=== PATIENT | female | born 1965 | race Caucasian/White ===

== ENCOUNTER → 2019-12-10 13:15 | Outpatient (BNVA) | payer MEDICARE, SELFPAY | PROVIDERS: Family Provider Internal Medicine; PCP Internal Medicine; Visit Provider Nurse Practitioner | DX: F70 Mild intellectual disabilities (principal); F25.1 Schizoaffective disorder, depressive type | CPT/HCPCS: 99213 ==

== ENCOUNTER → 2019-12-25 10:26 | Outpatient (BNVA) | payer MEDICARE, SELFPAY | PROVIDERS: Family Provider Internal Medicine; PCP Internal Medicine; Visit Provider Social Worker | DX: F70 Mild intellectual disabilities (principal); F25.1 Schizoaffective disorder, depressive type | CPT/HCPCS: 90834 ==

== ENCOUNTER → 2020-01-14 09:43 | Outpatient (BNVA) | payer MEDICARE, SELFPAY | PROVIDERS: Family Provider Internal Medicine; PCP Internal Medicine; Visit Provider Social Worker | DX: F70 Mild intellectual disabilities (principal); F25.1 Schizoaffective disorder, depressive type | CPT/HCPCS: 90834 ==

== ENCOUNTER → 2020-03-10 15:59 | Outpatient (BNVA) | payer MEDICARE, SELFPAY | PROVIDERS: Family Provider Internal Medicine; PCP Internal Medicine; Visit Provider Social Worker | DX: F25.1 Schizoaffective disorder, depressive type (principal); F70 Mild intellectual disabilities | CPT/HCPCS: 90832 ==

== ENCOUNTER → 2020-03-17 08:37 | Outpatient (BNVA) | payer MEDICARE, SELFPAY | PROVIDERS: Family Provider Internal Medicine; PCP Internal Medicine; Visit Provider Nurse Practitioner | DX: F70 Mild intellectual disabilities (principal); F25.1 Schizoaffective disorder, depressive type | CPT/HCPCS: 99213 ==

== ENCOUNTER → 2020-04-28 08:28 | Outpatient (BNVA) | payer MEDICARE, SELFPAY | PROVIDERS: Family Provider Internal Medicine; PCP Internal Medicine; Visit Provider Social Worker | DX: F70 Mild intellectual disabilities (principal); F25.1 Schizoaffective disorder, depressive type | CPT/HCPCS: 90834 ==

== ENCOUNTER → 2020-06-11 07:52 | Outpatient (BNVA) | payer MEDICARE, SELFPAY | PROVIDERS: Family Provider Internal Medicine; PCP Internal Medicine; Visit Provider Nurse Practitioner | DX: F70 Mild intellectual disabilities (principal); F25.1 Schizoaffective disorder, depressive type | CPT/HCPCS: 99213 ==

== ENCOUNTER → 2020-06-18 11:10 | Outpatient (BNVA) | payer MEDICARE, MEDICAID, SELFPAY | PROVIDERS: Family Provider Internal Medicine; PCP Internal Medicine; Visit Provider Internal Medicine | DX: E11.9 Type 2 diabetes mellitus without complications (principal); K75.81 Nonalcoholic steatohepatitis (NASH) | CPT/HCPCS: 80053; 80061; 83036; 85025 ==

== ENCOUNTER → 2020-09-08 08:04 | Outpatient (BNVA) | payer MEDICARE, SELFPAY | PROVIDERS: Family Provider Internal Medicine; PCP Internal Medicine; Visit Provider Nurse Practitioner | DX: F25.1 Schizoaffective disorder, depressive type (principal); F70 Mild intellectual disabilities | CPT/HCPCS: 99213 ==

== ENCOUNTER → 2021-05-04 13:05 | Outpatient (BNVA) | payer MEDICARE, MEDICAID, SELFPAY | PROVIDERS: Family Provider Internal Medicine; PCP Internal Medicine; Visit Provider Nurse Practitioner | DX: F25.1 Schizoaffective disorder, depressive type (principal); F70 Mild intellectual disabilities | CPT/HCPCS: 99214 ==

== ENCOUNTER → 2021-08-03 13:07 | Outpatient (BNVA) | payer MEDICARE, MEDICAID, SELFPAY | PROVIDERS: Family Provider Internal Medicine; PCP Internal Medicine; Visit Provider Nurse Practitioner | DX: F25.1 Schizoaffective disorder, depressive type (principal); F70 Mild intellectual disabilities | CPT/HCPCS: 99214 ==

== ENCOUNTER → 2021-08-25 14:56 | Outpatient (BNVA) | payer MEDICARE, MEDICAID, SELFPAY | PROVIDERS: Family Provider Internal Medicine; PCP Internal Medicine; Visit Provider Podiatrist Foot & Ankle Surgery | DX: M79.671 Pain in right foot (principal); R22.41 Localized swelling, mass and lump, right lower limb | CPT/HCPCS: 73630 ==

== ENCOUNTER 2021-08-25 16:04 | Outpatient (CLI) | payer MEDICARE, MEDICAID, SELFPAY | END 2021-08-25 16:05 | disposition home or self-care (01) | LOC: SPT 16:05 | PROVIDERS: Family Provider Internal Medicine; PCP Internal Medicine; Visit Provider Podiatrist Foot & Ankle Surgery | DX: Z46.89 Encounter for fitting and adjustment of other specified devices (principal); M72.2 Plantar fascial fibromatosis | CPT/HCPCS: 97760; L4397 ==

== ENCOUNTER 2021-10-01 16:12 | Emergency (ER) | payer MEDICARE, MEDICAID, SELFPAY ==
[2021-10-01 16:15] VITALS: BP 159/68; RESP 20; O2SAT 98; BMI 43.0
--- NOTE | 2021-10-01 16:16 | ED_ITS ---
Documented by User: Devendra Church MD 10/02/21 15:20 HPI - Fall General: Chief Complaint: Dizziness Stated Complaint: LEFT HIP PAIN S/P FALL Time Seen by Provider: 10/01/21 16:16 History of Present Illness: HPI Narrative: Ms. Villasenor is a 56-year-old lady with history of hypertension, hyperlipidemia, diabetes, who is disabled who presents emergency department due to fall. The patient reports a dizzy (spinning) sensation of just prior to coming in and fell backwards after standing. She did strike her head but denies loss of consciousness. She endorses generalized back pain and left hip pain. She does endorse a history of similar episodes of dizziness. Upon further discussion of history the patient endorses generalized malaise for a number of weeks which has been worsening. She was seen by a nurse practitioner yesterday and diagnosed with urinary tract infection at which point she was started on antibiotics however she continues to feel worse. She endorses poorly controlled blood glucose. Overall the intensity symptoms is moderate. The course has been worsening. No other specific sources of infection, provoking, exacerbating, or alleviating factors identified. History is somewhat limited by mental status, the patient appears mildly encephalopathic of unclear etiology. Review of Systems General: Reports: 10 or more systems reviewed and unremarkable except in HPI and below PFSH ED PFSH: Medical History Diabetes mellitus No changes till I can see her in person. Mild intellectual disabilities Psychiatric care Psychiatric care Pure hypercholesterolemia, unspecified Schizoaffective disorder, depressive type Family History Mother Diabetes CAD (coronary artery disease) Heart disease Social History Smoking and tobacco status: never smoked Second hand smoke exposure: No Alcohol intake: never Adopted: No Caregiver/support person: Yes Lives independently: No Household members: family Marital status: Single service: No Current occupational status: disabled History of recent travel: No Current gender identity: Female Special jose needs: No Agree to transfusion: Yes Female Reproductive History: Date of last menstrual period: 09/23/21 Physical Exam Narrative: EXAM NARRATIVE: GENERAL/CONSTITUTIONAL -somewhat ill-appearing. No acute distress. Eyes - PERRL, no conjunctival injection ENMT -no lacerations. No tenderness to palpation of skull. Atraumatic external nose and ears. TMs normal. Moist mucous membranes. No acute dentition abnormality. Jaw alignment intact. NECK - supple. trachea midline CARDIOVASCULAR -tachycardic rate and regular rhythm. RESPIRATORY -clear to auscultation bilaterally. No retractions or accessory muscle use. ABDOMEN/GI -generalized tenderness to palpation worse in the lower abdomen. There is some erythema, no evidence of traumatic injury. MSK - Extremities without obvious deformity or tenderness to palpation SKIN - Warm, Dry NEURO - alert and appropriately oriented. No focal neurologic deficits. Encephalopathy as discussed in HPI, in the absence of cooperating history may be patient's baseline. Moves all extremities equally. Course ED course: - Patient was seen and evaluated by me at bedside - Patient placed on cardiac monitors, IV access obtained - Initial evaluation notable for exam as noted above. No acute distress. ABCs intact. - Labs and imaging ordered. - Upon family arrival at bedside they endorse that patient's speech is abnormal and in general she does not seem like her normal self. Clarification is that this is not an acute change and has been ongoing for some time though more outw ardly noticeable starting last night with gait instability and more confusion. Patient is outside of stroke window if that is the etiology however will order CTA given this history. - Labs notable for marked leukocytosis and hemoconcentration. Metabolic panel notable for fairly profound changes likely secondary to DKA. Given potassium patient will require treatment for hyperkalemia prior to initiation of insulin. Lactate normal. Urinalysis not concerning for urinary tract infection. - IV fluids, oral and IV potassium replenishment ordered. ABG notable for acidemia consistent with DKA. Qualitative ketones positive, no quantitative test available at this facility. - Imaging notable for no acute traumatic injury related to head or neck. No evidence of significant vascular abnormality. CT chest negative for traumatic injury. CT abdomen pelvis notable for gas present in tissue. - Immediately upon reviewing images personally I reevaluated the patient. Overall clinical status appears similar. Clinical findings are somewhat isolated to suprapubic region with redness and trace soft tissue crepitus. I did not appreciate any laceration or other injury discussed in formal CT read, as such my clinical suspicion is for necrotizing fasciitis. vanc, alman, clinda ordered. - I discussed the case with both general surgery and urology. Given DKA as well as necrotizing fasciitis in the context of a patient with significant comorbidities including uncontrolled diabetes, obesity and in the absence of dedicated surgical critical care physcian the patient exceeds our capabilities and requires transfer. - Upon serial reexamination after treatment the patient was similar, tachycardia improved mildly with fluids. - Patient and family updated at bedside. - Discussed case with [facility] in [facility] who accepted the patient to the emergency department with with planned operative intervention tonight, discussed with both ED physician and trauma surgery. - Patient care handed off to Dr Disla with air transport in route to draft roller picker patient for close observation. Vital Signs: Vital signs: Vital Signs Temperature 97.7 F 10/01/21 19:06 Pulse Rate 72 10/01/21 20:00 Respiratory Rate 18 10/01/21 20:00 Blood Pressure 132/79 10/01/21 20:00 Pulse Oximetry 100 10/01/21 20:00 MDM - Fall Medical Records: Attestation: I reviewed the patient's medical records. Lab Data: Attestation: I reviewed the patient's lab results. Labs: Lab Results 10/01/21 10/01/21 10/01/21 16:55 16:55 16:55 WBC 28.8 10^3/uL H 10 ^3/uL (4.0-10.0) RBC 5.75 10^6/uL H 10 ^6/uL (4.1-5.3) Hgb 16.8 g/dL H g/dL (11.5-15.3) Hct 50.9 % H % (37.0-47.0) MCV 88.5 fl fl (81-99) MCH 29.2 pg pg (28.0-34.0) MCHC 33.0 g/dL g/dL (30.0-36.0) RDW 13.4 % % (12.1-15.1) Plt Count 412 10^3/cmm H 10 ^3/cmm (130-400) MPV 9.8 fL fL (7.4-10.4) Lymph % (Auto) Not Reportable [place] % (Auto) Not Reportable Lymph # (Auto) Not Reportable [place] # (Auto) Not Reportable Total Counted 100 (0-100) Atypical Lymphs % 0.0 % % (0-5) Absolute Neutrophi ls 25.1 10^3/cmm H 1 0^3/cmm (1.4-6.5) Segmented Neutroph ils 44 % % Abs Segm Neuts (Ma n) 12.7 10/cmm H 10/ cmm (1.6-7.1) Band Neutrophils 43.0 % % Abs Band Neuts (Ma n) 12.4 10^3/cmm H 1 0^3/cmm (0.0-1.2) Absolute Lymphocyt es 0.3 10^3/cmm L 10 ^3/cmm (1.2-3.4) Lymphocytes (Manua l) 1 % % Monocytes (Manual) 12.0 % % Absolute Monocytes 3.5 10^3/cmm H 10 ^3/cmm (0.1-0.6) Eosinophils (Manua l) 0 % % Absolute Eosinophi ls 0.0 10^3/cmm 10^3 /cmm (0.0-0.7) Basophils (Manual) 0.0 % % Absolute Basophils 0.0 10^3/cmm 10^3 /cmm (0.0-0.2) Toxic Granulation 1+ H Platelet Estimate Increased H (Normal) Specimen Type Sample Site ABG pH ABG pCO2 ABG pO2 ABG HCO3 ABG Base Excess Wenceslao Test Hematocrit O2 Delivery Device FiO2 Service Station Operator ID Sodium 131 mmol/L L mmol /L (136-145) Potassium 2.6 mmol/L L* mmo l/L (3.5-5.1) Chloride 91 mmol/L L mmol/ L (98-107) Carbon Dioxide 7 mmol/L L* mmol/ L (22-29) Anion Gap 35.6 H (5-19) BUN 23 mg/dL H mg/dL (6-20) Creatinine 1.0 mg/dL H mg/dL (0.5-0.9) GFR Calculation 57.6 mL/min L mL/ min (90-130) Glucose 293 mg/dL H mg/dL (65-115) POC Glucose Calculated Osmolal ity 286 mOsm/kg mOsm/ kg (285-295) Lactic Acid Calcium 11.0 mg/dL H mg/d L (8.5-10.5) Magnesium Total Bilirubin 0.3 mg/dL mg/dL (0.15-1.2) AST 11 U/L U/L (0-32) ALT 13 U/L U/L (0-33) Alkaline Phosphata se 161 IU/L H IU/L (35-105) Troponin T Baselin e 12 ng/L H ng/L (0-10) Troponin T 120 Min [place] Delta Troponin T C-Reactive Protein Total Protein 7.8 g/dL g/dL (6.6-8.7) Albumin 3.6 g/dL g/dL (3.5-5.2) Globulin 4.2 g/dL g/dL (1.3-4.6) TSH 0.45 uIU/mL uIU/m L (0.27-4.20) Urine Color Urine Appearance Urine pH Ur Specific Gravit y Urine Protein Urine Glucose (UA) Urine Ketones Urine Blood Urine Nitrate Urine Bilirubin Urine Urobilinogen Ur Leukocyte Rachel ase Urine RBC Urine WBC Ur Squamous Epith Cells Amorphous Sediment Urine Bacteria Serum Ketones 10/01/21 10/01/21 10/01/21 16:55 16:55 16:55 WBC RBC Hgb Hct MCV MCH MCHC RDW Plt Count MPV Lymph % (Auto) [place] % (Auto) Lymph # (Auto) [place] # (Auto) Total Counted Atypical Lymphs % Absolute Neutrophi ls Segmented Neutroph ils Abs Segm Neuts (Ma n) Band Neutrophils Abs Band Neuts (Ma n) Absolute Lymphocyt es Lymphocytes (Manua l) Monocytes (Manual) Absolute Monocytes Eosinophils (Manua l) Absolute Eosinophi ls Basophils (Manual) Absolute Basophils Toxic Granulation Platelet Estimate Specimen Type Sample Site ABG pH ABG pCO2 ABG pO2 ABG HCO3 ABG Base Excess Wenceslao Test Hematocrit O2 Delivery Device FiO2 Service Station Operator ID Sodium Potassium Chloride Carbon Dioxide Anion Gap BUN Creatinine GFR Calculation Glucose POC Glucose Calculated Osmolal ity Lactic Acid 1.8 mmol/L mmol/L (0.5-2.2) Calcium Magnesium 2.5 mg/dL H mg/dL (1.7-2.3) Total Bilirubin AST ALT Alkaline Phosphata se Troponin T Baselin e Troponin T 120 Min [place] Delta Troponin T C-Reactive Protein Total Protein Albumin Globulin TSH Urine Color Urine Appearance Urine pH Ur Specific Gravit y Urine Protein Urine Glucose (UA) Urine Ketones Urine Blood Urine Nitrate Urine Bilirubin Urine Urobilinogen Ur Leukocyte Rachel ase Urine RBC Urine WBC Ur Squamous Epith Cells Amorphous Sediment Urine Bacteria Serum Ketones Positive H (Negative) 10/01/21 10/01/21 10/01/21 17:00 17:43 19:08 WBC RBC Hgb Hct MCV MCH MCHC RDW Plt Count MPV Lymph % (Auto) [place] % (Auto) Lymph # (Auto) [place] # (Auto) Total Counted Atypical Lymphs % Absolute Neutrophi ls Segmented Neutroph ils Abs Segm Neuts (Ma n) Band Neutrophils Abs Band Neuts (Ma n) Absolute Lymphocyt es Lymphocytes (Manua l) Monocytes (Manual) Absolute Monocytes Eosinophils (Manua l) Absolute Eosinophi ls Basophils (Manual) Absolute Basophils Toxic Granulation Platelet Estimate Specimen Type Arterial Sample Site Radial, left ABG pH 7.13 L* (7.35-7.45) ABG pCO2 15.2 mmHg L* mmHg (35-45) ABG pO2 117.0 mmHg H mmHg (80.0-100.0) ABG HCO3 5.0 mmol/L L mmol /L (22-26) ABG Base Excess -21.7 mmol/L L mm ol/L (-2.0-2.0) Wenceslao Test Pos Hematocrit 51.8 % H % (37-47) O2 Delivery Device Room air FiO2 21.0 % % Service Station Operator ID Monro Sodium Potassium Chloride Carbon Dioxide Anion Gap BUN Creatinine GFR Calculation Glucose POC Glucose 257 mg/dL H mg/dL (70-110) Calculated Osmolal ity Lactic Acid Calcium Magnesium Total Bilirubin AST ALT Alkaline Phosphata se Troponin T Baselin e Troponin T 120 Min [place] 11.32 ng/L H ng/L (0-10) Delta Troponin T -0.68 ABS# L ABS# (0-10) C-Reactive Protein Total Protein Albumin Globulin TSH Urine Color Urine Appearance Urine pH Ur Specific Gravit y Urine Protein Urine Glucose (UA) Urine Ketones Urine Blood Urine Nitrate Urine Bilirubin Urine Urobilinogen Ur Leukocyte Rachel ase Urine RBC Urine WBC Ur Squamous Epith Cells Amorphous Sediment Urine Bacteria Serum Ketones 10/01/21 10/01/21 19:17 19:41 WBC RBC Hgb Hct MCV MCH MCHC RDW Plt Count MPV Lymph % (Auto) [place] % (Auto) Lymph # (Auto) [place] # (Auto) Total Counted Atypical Lymphs % Absolute Neutrophi ls Segmented Neutroph ils Abs Segm Neuts (Ma n) Band Neutrophils Abs Band Neuts (Ma n) Absolute Lymphocyt es Lymphocytes (Manua l) Monocytes (Manual) Absolute Monocytes Eosinophils (Manua l) Absolute Eosinophi ls Basophils (Manual) Absolute Basophils Toxic Granulation Platelet Estimate Specimen Type Sample Site ABG pH ABG pCO2 ABG pO2 ABG HCO3 ABG Base Excess Wenceslao Test Hematocrit O2 Delivery Device FiO2 Service Station Operator ID Sodium 136 mmol/L mmol/L (136-145) Potassium 3.0 mmol/L L mmol /L (3.5-5.1) Chloride 100 mmol/L mmol/L (98-107) Carbon Dioxide 9 mmol/L L mmol/L (22-29) Anion Gap 30.0 H (5-19) BUN 23 mg/dL H mg/dL (6-20) Creatinine 1.0 mg/dL H mg/dL (0.5-0.9) GFR Calculation 57.6 mL/min L mL/ min (90-130) Glucose 266 mg/dL H mg/dL (65-115) POC Glucose Calculated Osmolal ity 295 mOsm/kg mOsm/ kg (285-295) Lactic Acid Calcium 10.1 mg/dL mg/dL (8.5-10.5) Magnesium Total Bilirubin AST ALT Alkaline Phosphata se Troponin T Baselin e Troponin T 120 Min [place] Delta Troponin T C-Reactive Protein 315.6 mg/L H mg/L (0.0-4.9) Total Protein Albumin Globulin TSH Urine Color Yellow (Yellow) Urine Appearance Clear (CLEAR) Urine pH 5 (5-7) Ur Specific Gravit y 1.010 (1.005-1.030) Urine Protein 1+ H (Negative) Urine Glucose (UA) 4+ H (Normal) Urine Ketones 2+ H (Negative) Urine Blood 2+ H (Negative) Urine Nitrate Negative (Negative) Urine Bilirubin Neg (Negative) Urine Urobilinogen Norm mg/dL mg/dL (Negative) Ur Leukocyte Rachel ase Negative (Negative) Urine RBC 0-4 /hpf H /hpf (0-2) Urine WBC 0-4 /hpf H /hpf (0-5) Ur Squamous Epith Cells 10-15 /hpf H /hpf (0-5) Amorphous Sediment 1+ /hpf /hpf Urine Bacteria Trace /hpf /hpf (NONE) Serum Ketones EKG Data^: EKG 1: Attestation: I personally reviewed and interpreted this EKG as follows: EKG interpretation date: 10/01/21 EKG interpretation time: 16:25 Interpretation: Twelve-lead EKG shows a regular rhythm at a rate of 95. RI interval 136, QRS duration 100, QTc 357. Left axis deviation. Interpretation: Sinus rhythm. Critical Care Time Critical Care Time: Critical Care Time: Yes Total Critical Care Time: 110 Attestation: Due to a high probability of clinically significant, possibly life threatening deterioration, the patient required my highest level of attention and preparedness to intervene emergently and I personally spent this critical care time directly and personally managing the patient. This critical care time included obtaining a history; examining the patient; pulse oximetry; ordering and review of laboratory and imaging studies; arranging urgent treatment with development of a management plan; evaluation of patient's response to treatment; frequent reassessment; and, discussions with other providers as applicable. It was exclusive of separately billable procedures. Discharge Plan Discharge Patient Disposition: Transfer to ED Prescriptions: No Action (DME) Diabetic Shoes See Rx Instructions .ROUTE .MEDSUPPLY Qty: 1 RF: 0 (DME) Night Splint See Rx Instructions .Route .MEDSUPPLY Qty: 1 RF: 0 ceftriaxone 1 gram recon soln 1 g IM ONCE Qty: 1 RF: 0 ciprofloxacin HCl [Cipro] 500 mg tablet 500 mg PO BID 10 Days Qty: 20 RF: 0 fluconazole [Diflucan] 150 mg tablet 150 mg PO DAILY 7 Days Qty: 7 RF: 0 cholecalciferol (vitamin D3) 25 mcg (1,000 unit) capsule 25 mcg PO DAILY RF: 0 cyanocobalamin (vitamin B-12) [Vitamin B-12] 500 mcg tablet 500 mcg PO DAILY RF: 0 loratadine 10 mg capsule 10 mg PO DAILY RF: 0 aripiprazole [Abilify] 2 mg tablet 2 mg PO DAILY Qty: 30 RF: 2 (DME) True Metrix Glucose Test Strip Strip See Rx Instructions .ROUTE .MEDSUPPLY Qty: 100 RF: 11 (DME) lancets [TRUEplus Lancets] 30 gauge misc See Rx Instructions .ROUTE .MEDSUPPLY Qty: 100 RF: 11 Bydureon BCise 2 mg/0.85 mL auto-injector 2 mg SUBCUT Q7D Qty: 3.4 RF: 3 metformin 500 mg tablet 1,000 mg PO BID Qty: 120 RF: 3 celecoxib 400 mg capsule 400 mg PO DAILY RF: 0 Januvia 100 mg tablet 100 mg PO DAILY RF: 0 Farxiga 10 mg tablet 10 mg PO DAILY RF: 0 Referrals: Roberth Mendez MD [Primary Care Provider] - Coding Level of Care Code ED 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 Mild intellectual disabilities Psychiatric care Psychiatric care Pure hypercholesterolemia, unspecified Schizoaffective disorder, depressive type Family History Mother Diabetes CAD (coronary artery disease) Heart disease Social History Smoking and tobacco status: never smoked Second hand smoke exposure: No Alcohol intake: never Adopted: No Caregiver/support person: Yes Lives independently: No Household members: family Marital status: Single service: No Current occupational status: disabled History of recent travel: No Current gender identity: Female Special jose needs: No Agree to transfusion: Yes Course Vital Signs: Vital signs: Vital Signs Temperature 97.7 F 10/01/21 19:06 Pulse Rate 72 10/01/21 20:00 Respiratory Rate 18 10/01/21 20:00 Blood Pressure 132/79 10/01/21 20:00 Pulse Oximetry 100 10/01/21 20:00 MDM - Fall MDM Narrative: Medical decision making narrative: 56-year-old female checked out to me by Dr. Mckinney at shift change. This lady has a misfortune of being in DKA as well as having what appears to be necrotizing fasciitis in her pelvis and abdominal wall. She has been transferred to [facility] in [place]. At the time of helicopter transfer, she was awake and responding. Potassium is up to 3.0 from 2.6. Bicarbonate level is up to 9 from 7. She certainly is no worse. Insulin was not started, as potassium has just now reached 3. Potassium is still infusing. She is going to the emergency department there for evaluation by surgery and medicine teams. She has had vancomycin, Zosyn, and clindamycin here, as well as sepsis bolus. Lab Data: Labs: Lab Results 10/01/21 10/01/21 10/01/21 16:55 16:55 16:55 WBC 28.8 10^3/uL H 10 ^3/uL (4.0-10.0) RBC 5.75 10^6/uL H 10 ^6/uL (4.1-5.3) Hgb 16.8 g/dL H g/dL (11.5-15.3) Hct 50.9 % H % (37.0-47.0) MCV 88.5 fl fl (81-99) MCH 29.2 pg pg (28.0-34.0) MCHC 33.0 g/dL g/dL (30.0-36.0) RDW 13.4 % % (12.1-15.1) Plt Count 412 10^3/cmm H 10 ^3/cmm (130-400) MPV 9.8 fL fL (7.4-10.4) Lymph % (Auto) Not Reportable [place] % (Auto) Not Reportable Lymph # (Auto) Not Reportable [place] # (Auto) Not Reportable Total Counted 100 (0-100) Atypical Lymphs % 0.0 % % (0-5) Absolute Neutrophi ls 25.1 10^3/cmm H 1 0^3/cmm (1.4-6.5) Segmented Neutroph ils 44 % % Abs Segm Neuts (Ma n) 12.7 10/cmm H 10/ cmm (1.6-7.1) Band Neutrophils 43.0 % % Abs Band Neuts (Ma n) 12.4 10^3/cmm H 1 0^3/cmm (0.0-1.2) Absolute Lymphocyt es 0.3 10^3/cmm L 10 ^3/cmm (1.2-3.4) Lymphocytes (Manua l) 1 % % Monocytes (Manual) 12.0 % % Absolute Monocytes 3.5 10^3/cmm H 10 ^3/cmm (0.1-0.6) Eosinophils (Manua l) 0 % % Absolute Eosinophi ls 0.0 10^3/cmm 10^3 /cmm (0.0-0.7) Basophils (Manual) 0.0 % % Absolute Basophils 0.0 10^3/cmm 10^3 /cmm (0.0-0.2) Toxic Granulation 1+ H Platelet Estimate Increased H (Normal) Specimen Type Sample Site ABG pH ABG pCO2 ABG pO2 ABG HCO3 ABG Base Excess Wenceslao Test Hematocrit O2 Delivery Device FiO2 Service Station Operator ID Sodium 131 mmol/L L mmol /L (136-145) Potassium 2.6 mmol/L L* mmo l/L (3.5-5.1) Chloride 91 mmol/L L mmol/ L (98-107) Carbon Dioxide 7 mmol/L L* mmol/ L (22-29) Anion Gap 35.6 H (5-19) BUN 23 mg/dL H mg/dL (6-20) Creatinine 1.0 mg/dL H mg/dL (0.5-0.9) GFR Calculation 57.6 mL/min L mL/ min (90-130) Glucose 293 mg/dL H mg/dL (65-115) POC Glucose Calculated Osmolal ity 286 mOsm/kg mOsm/ kg (285-295) Lactic Acid Calcium 11.0 mg/dL H mg/d L (8.5-10.5) Magnesium Total Bilirubin 0.3 mg/dL mg/dL (0.15-1.2) AST 11 U/L U/L (0-32) ALT 13 U/L U/L (0-33) Alkaline Phosphata se 161 IU/L H IU/L (35-105) Troponin T Baselin e 12 ng/L H ng/L (0-10) Troponin T 120 Min [place] Delta Troponin T C-Reactive Protein Total Protein 7.8 g/dL g/dL (6.6-8.7) Albumin 3.6 g/dL g/dL (3.5-5.2) Globulin 4.2 g/dL g/dL (1.3-4.6) TSH 0.45 uIU/mL uIU/m L (0.27-4.20) Urine Color Urine Appearance Urine pH Ur Specific Gravit y Urine Protein Urine Glucose (UA) Urine Ketones Urine Blood Urine Nitrate Urine Bilirubin Urine Urobilinogen Ur Leukocyte Rachel ase Urine RBC Urine WBC Ur Squamous Epith Cells Amorphous Sediment Urine Bacteria Serum Ketones 10/01/21 10/01/21 10/01/21 16:55 16:55 16:55 WBC RBC Hgb Hct MCV MCH MCHC RDW Plt Count MPV Lymph % (Auto) [place] % (Auto) Lymph # (Auto) [place] # (Auto) Total Counted Atypical Lymphs % Absolute Neutrophi ls Segmented Neutroph ils Abs Segm Neuts (Ma n) Band Neutrophils Abs Band Neuts (Ma n) Absolute Lymphocyt es Lymphocytes (Manua l) Monocytes (Manual) Absolute Monocytes Eosinophils (Manua l) Absolute Eosinophi ls Basophils (Manual) Absolute Basophils Toxic Granulation Platelet Estimate Specimen Type Sample Site ABG pH ABG pCO2 ABG pO2 ABG HCO3 ABG Base Excess Wenceslao Test Hematocrit O2 Delivery Device FiO2 Service Station Operator ID Sodium Potassium Chloride Carbon Dioxide Anion Gap BUN Creatinine GFR Calculation Glucose POC Glucose Calculated Osmolal ity Lactic Acid 1.8 mmol/L mmol/L (0.5-2.2) Calcium Magnesium 2.5 mg/dL H mg/dL (1.7-2.3) Total Bilirubin AST ALT Alkaline Phosphata se Troponin T Baselin e Troponin T 120 Min [place] Delta Troponin T C-Reactive Protein Total Protein Albumin Globulin TSH Urine Color Urine Appearance Urine pH Ur Specific Gravit y Urine Protein Urine Glucose (UA) Urine Ketones Urine Blood Urine Nitrate Urine Bilirubin Urine Urobilinogen Ur Leukocyte Rachel ase Urine RBC Urine WBC Ur Squamous Epith Cells Amorphous Sediment Urine Bacteria Serum Ketones Positive H (Negative) 10/01/21 10/01/21 10/01/21 17:00 17:43 19:08 WBC RBC Hgb Hct MCV MCH MCHC RDW Plt Count MPV Lymph % (Auto) [place] % (Auto) Lymph # (Auto) [place] # (Auto) Total Counted Atypical Lymphs % Absolute Neutrophi ls Segmented Neutroph ils Abs Segm Neuts (Ma n) Band Neutrophils Abs Band Neuts (Ma n) Absolute Lymphocyt es Lymphocytes (Manua l) Monocytes (Manual) Absolute Monocytes Eosinophils (Manua l) Absolute Eosinophi ls Basophils (Manual) Absolute Basophils Toxic Granulation Platelet Estimate Specimen Type Arterial Sample Site Radial, left ABG pH 7.13 L* (7.35-7.45) ABG pCO2 15.2 mmHg L* mmHg (35-45) ABG pO2 117.0 mmHg H mmHg (80.0-100.0) ABG HCO3 5.0 mmol/L L mmol /L (22-26) ABG Base Excess -21.7 mmol/L L mm ol/L (-2.0-2.0) Wenceslao Test Pos Hematocrit 51.8 % H % (37-47) O2 Delivery Device Room air FiO2 21.0 % % Service Station Operator ID Monro Sodium Potassium Chloride Carbon Dioxide Anion Gap BUN Creatinine GFR Calculation Glucose POC Glucose 257 mg/dL H mg/dL (70-110) Calculated Osmolal ity Lactic Acid Calcium Magnesium Total Bilirubin AST ALT Alkaline Phosphata se Troponin T Baselin e Troponin T 120 Min [place] 11.32 ng/L H ng/L (0-10) Delta Troponin T -0.68 ABS# L ABS# (0-10) C-Reactive Protein Total Protein Albumin Globulin TSH Urine Color Urine Appearance Urine pH Ur Specific Gravit y Urine Protein Urine Glucose (UA) Urine Ketones Urine Blood Urine Nitrate Urine Bilirubin Urine Urobilinogen Ur Leukocyte Rachel ase Urine RBC Urine WBC Ur Squamous Epith Cells Amorphous Sediment Urine Bacteria Serum Ketones 10/01/21 10/01/21 19:17 19:41 WBC RBC Hgb Hct MCV MCH MCHC RDW Plt Count MPV Lymph % (Auto) [place] % (Auto) Lymph # (Auto) [place] # (Auto) Total Counted Atypical Lymphs % Absolute Neutrophi ls Segmented Neutroph ils Abs Segm Neuts (Ma n) Band Neutrophils Abs Band Neuts (Ma n) Absolute Lymphocyt es Lymphocytes (Manua l) Monocytes (Manual) Absolute Monocytes Eosinophils (Manua l) Absolute Eosinophi ls Basophils (Manual) Absolute Basophils Toxic Granulation Platelet Estimate Specimen Type Sample Site ABG pH ABG pCO2 ABG pO2 ABG HCO3 ABG Base Excess Wenceslao Test Hematocrit O2 Delivery Device FiO2 Service Station Operator ID Sodium 136 mmol/L mmol/L (136-145) Potassium 3.0 mmol/L L mmol /L (3.5-5.1) Chloride 100 mmol/L mmol/L (98-107) Carbon Dioxide 9 mmol/L L mmol/L (22-29) Anion Gap 30.0 H (5-19) BUN 23 mg/dL H mg/dL (6-20) Creatinine 1.0 mg/dL H mg/dL (0.5-0.9) GFR Calculation 57.6 mL/min L mL/ min (90-130) Glucose 266 mg/dL H mg/dL (65-115) POC Glucose Calculated Osmolal ity 295 mOsm/kg mOsm/ kg (285-295) Lactic Acid Calcium 10.1 mg/dL mg/dL (8.5-10.5) Magnesium Total Bilirubin AST ALT Alkaline Phosphata se Troponin T Baselin e Troponin T 120 Min [place] Delta Troponin T C-Reactive Protein 315.6 mg/L H mg/L (0.0-4.9) Total Protein Albumin Globulin TSH Urine Color Yellow (Yellow) Urine Appearance Clear (CLEAR) Urine pH 5 (5-7) Ur Specific Gravit y 1.010 (1.005-1.030) Urine Protein 1+ H (Negative) Urine Glucose (UA) 4+ H (Normal) Urine Ketones 2+ H (Negative) Urine Blood 2+ H (Negative) Urine Nitrate Negative (Negative) Urine Bilirubin Neg (Negative) Urine Urobilinogen Norm mg/dL mg/dL (Negative) Ur Leukocyte Rachel ase Negative (Negative) Urine RBC 0-4 /hpf H /hpf (0-2) Urine WBC 0-4 /hpf H /hpf (0-5) Ur Squamous Epith Cells 10-15 /hpf H /hpf (0-5) Amorphous Sediment 1+ /hpf /hpf Urine Bacteria Trace /hpf /hpf (NONE) Serum Ketones Discharge Plan Discharge Patient Disposition: Transfer to ED Prescriptions: No Action (DME) Diabetic Shoes See Rx Instructions .ROUTE .MEDSUPPLY Qty: 1 RF: 0 (DME) Night Splint See Rx Instructions .Route .MEDSUPPLY Qty: 1 RF: 0 ceftriaxone 1 gram recon soln 1 g IM ONCE Qty: 1 RF: 0 ciprofloxacin HCl [Cipro] 500 mg tablet 500 mg PO BID 10 Days Qty: 20 RF: 0 fluconazole [Diflucan] 150 mg tablet 150 mg PO DAILY 7 Days Qty: 7 RF: 0 cholecalciferol (vitamin D3) 25 mcg (1,000 unit) capsule 25 mcg PO DAILY RF: 0 cyanocobalamin (vitamin B-12) [Vitamin B-12] 500 mcg tablet 500 mcg PO DAILY RF: 0 loratadine 10 mg capsule 10 mg PO DAILY RF: 0 aripiprazole [Abilify] 2 mg tablet 2 mg PO DAILY Qty: 30 RF: 2 (DME) True Metrix Glucose Test Strip Strip See Rx Instructions .ROUTE .MEDSUPPLY Qty: 100 RF: 11 (DME) lancets [TRUEplus Lancets] 30 gauge misc See Rx Instructions .ROUTE .MEDSUPPLY Qty: 100 RF: 11 Bydureon BCise 2 mg/0.85 mL auto-injector 2 mg SUBCUT Q7D Qty: 3.4 RF: 3 metformin 500 mg tablet 1,000 mg PO BID Qty: 120 RF: 3 celecoxib 400 mg capsule 400 mg PO DAILY RF: 0 Januvia 100 mg tablet 100 mg PO DAILY RF: 0 Farxiga 10 mg tablet 10 mg PO DAILY RF: 0 Referrals: Roberth Mendez MD [Primary Care Provider] - Coding Level of Care Code ED Etcher Apprentice Photoengraving for Cedric Woodard
--- NOTE | 2021-10-01 16:27 | CTR_ITS ---
PROCEDURE INFORMATION: Exam: CT Cervical Spine Without Contrast Exam date and time: 10/01/2021 4:27 PM Age: 56 years old Clinical indication: Injury or trauma; Fall; Blunt trauma TECHNIQUE: Imaging protocol: Computed tomography images of the cervical spine without contrast. Radiation optimization: All CT scans at this facility use at least one of these dose optimization techniques: automated exposure control; mA and/or kV adjustment per patient size (includes targeted exams where dose is matched to clinical indication); or iterative reconstruction. COMPARISON: CT head wo con* [id number] 10/01/2021 5:55 PM RADIATION DOSE METRICS: Total DLP (mGy-cm): 712.9 FINDINGS: There is reversal of the normal cervical lordosis. This may be due to muscle spasm or patient positioning. There is no evidence of fracture or subluxation. The vertebral bodies are of normal height. There is disc space narrowing at C5-C6 and C6-C7 with endplate spurring. The prevertebral soft tissues and the predental space are unremarkable. There is no significant central stenosis. There is no evidence for epidural hematoma. There are degenerative changes of the facet joints and uncovertebral joints. The lung apices are clear. There is noted to be edema within the subcutaneous fat posterior to the neck. CT/CT cervical spin wo con* [id number] IMPRESSION: There is reversal of the normal cervical lordosis. This may be due to muscle spasm or patient positioning. There is no evidence of fracture or subluxation. Radiation Dose CTDIVOL = (mGy): DLP = 712.9 (mGy-cm)
--- NOTE | 2021-10-01 16:27 | XRR_ITS ---
PROCEDURE INFORMATION: Exam: XR Left Hip Exam date and time: 10/01/2021 4:27 PM Age: 56 years old Clinical indication: Injury or trauma; Fall; Blunt trauma (contusions or hematomas); Left; Hip; Additional info: Fall, pain TECHNIQUE: Imaging protocol: XR Left hip. Views: 2 or 3 views hip with pelvis when performed. COMPARISON: CT chest abd pel w con* 10/01/2021 6:06:38 PM FINDINGS: Bones/joints: The bones are intact and in normal alignment. No fracture. Soft tissues: Soft tissue gas in the lower left abdominal wall, perineum, pubic mons region, and buttock. XR/XR hip LT 2-3V wo/w pel* [id number] IMPRESSION: 1. No fracture identified. 2. Soft tissue gas in the lower left abdominal wall and pelvic region, presumably from traumatic laceration or puncture injury. Please refer to CT abdomen pelvis report. Radiation Dose CTDIVOL = (mGy): DLP = (mGy-cm)
--- NOTE | 2021-10-01 16:27 | CTR_ITS ---
PROCEDURE INFORMATION: Exam: CT Head Without Contrast Exam date and time: 10/01/2021 4:27 PM Age: 56 years old Clinical indication: Injury or trauma; Blunt trauma (contusions or hematomas); Without loss of consciousness; Patient HX: Dizziness and fall; Additional info: Fall, dizzy TECHNIQUE: Imaging protocol: Computed tomography of the head without contrast. Radiation optimization: All CT scans at this facility use at least one of these dose optimization techniques: automated exposure control; mA and/or kV adjustment per patient size (includes targeted exams where dose is matched to clinical indication); or iterative reconstruction. COMPARISON: No relevant prior studies available. RADIATION DOSE METRICS: Total DLP (mGy-cm): 815.91 FINDINGS: There is mild generalized atrophy. There are mild areas of decreased attenuation in the periventricular white matter which is nonspecific but likely relates to small vessel ischemic change. There is no evidence for acute infarct. There is no evidence for mass. There is no hemorrhage. There are no extra-axial fluid collections. There is no midline shift. The skull is intact. The visualized paranasal sinuses are well aerated. CT/CT head wo con* [id number] IMPRESSION: No evidence for acute intracranial injury. Radiation Dose CTDIVOL = (mGy): DLP = 815.91 (mGy-cm)
--- NOTE | 2021-10-01 16:29 | ECG_ITS ---
[facility] Test Date: 2021-10-01 Pat Name: Martha Villasenor Department: Room: Gender: Female Occupational Nurse: : 1965 Requested By: Devendra Church Order Number: [id number] Esmer MD: Lele Grace M.D. Measurements Intervals [place] Rate: 95 P: 43 CT: 136 QRS: -45 QRSD: 100 T: 77 QT: 304 QTc: 383 Interpretive Statements SINUS RHYTHM PATTERN CONSISTENT WITH PULMONARY DISEASE LEFT ANTERIOR FASCICULAR BLOCK [QRS AXIS <= -45, QR IN I, RS IN II] MODERATE VOLTAGE CRITERIA FOR LVH, CONSIDER NORMAL VARIANT [MEETS CRITERIA IN ONE OF: R(aVL), S(V1), R(V5), R(V5/V6)+S(V1)] NONSPECIFIC T-WAVE ABNORMALITY No previous ECG available for comparison Electronically Signed On 10-02-2021 21:56:05 SOLAR ENERGY SYSTEM INSTALLER by Lele Grace M.D. [email or web address]
[2021-10-01 16:32] VITALS: BP 147/98; PULSE 97; RESP 24; O2SAT 99
--- NOTE | 2021-10-01 16:55 | CTR_ITS ---
PROCEDURE INFORMATION: Exam: CT Angiography Head With Contrast, Arteriography Exam date and time: 10/01/2021 4:55 PM Age: 56 years old Clinical indication: Dizziness and giddiness and speech disturbance; Patient HX: Dizziness, AMS, slurred speech; Additional info: Dizzy, AMS TECHNIQUE: Imaging protocol: Computed tomography angiography of the head with contrast. Exam focused on the arteries. 3D rendering (Not supervised by radiologist): MIP and/or 3D reconstructed images were created by the technologist. Radiation optimization: All CT scans at this facility use at least one of these dose optimization techniques: automated exposure control; mA and/or kV adjustment per patient size (includes targeted exams where dose is matched to clinical indication); or iterative reconstruction. Contrast material: VISI 320; Contrast volume: 75 ml; Contrast route: INTRAVENOUS (IV); COMPARISON: CT head wo con* [id number] 10/01/2021 5:55 PM RADIATION DOSE METRICS: Total DLP (mGy-cm): 2070.69 FINDINGS: ANTERIOR CIRCULATION: Right internal carotid artery: Unremarkable. Intracranial segment is patent with no significant stenosis. No aneurysm. Right middle cerebral artery: Unremarkable. No occlusion or significant stenosis. No aneurysm. Right anterior cerebral artery: Unremarkable. No occlusion or significant stenosis. No aneurysm. Left internal carotid artery: Unremarkable. Intracranial segment is patent with no significant stenosis. No aneurysm. Left middle cerebral artery: Unremarkable. No occlusion or significant stenosis. No aneurysm. Left anterior cerebral artery: Unremarkable. No occlusion or significant stenosis. No aneurysm. POSTERIOR CIRCULATION: Right vertebral artery: Unremarkable. No occlusion or significant stenosis. No aneurysm. Left vertebral artery: Unremarkable. No occlusion or significant stenosis. No aneurysm. Basilar artery: Unremarkable. No occlusion or significant stenosis. No aneurysm. Right posterior cerebral artery: Unremarkable. No occlusion or significant stenosis. No aneurysm. Left posterior cerebral artery: Unremarkable. No occlusion or significant stenosis. No aneurysm. Veins: Dural venous sinuses are patent. Brain: Unremarkable. Cerebral ventricles: There is mild ex vacuo dilation of the lateral ventricles. The basal cisterns are unremarkable. Bones/joints: Unremarkable. No acute fracture. Soft tissues: Unremarkable. IMPRESSION: No arterial stenosis, occlusion or aneurysm. PROCEDURE INFORMATION: Exam: CT Angiography Neck With Contrast Exam date and time: 10/01/2021 4:55 PM Age: 56 years old Clinical indication: Dizziness and giddiness and speech disturbance; Patient HX: Dizziness, AMS, slurred speech; Additional info: Dizzy, AMS TECHNIQUE: Imaging protocol: Computed tomography angiography of the neck with contrast. 3D rendering (Not supervised by radiologist): MIP and/or 3D reconstructed images were created by the technologist. Radiation optimization: All CT scans at this facility use at least one of these dose optimization techniques: automated exposure control; mA and/or kV adjustment per patient size (includes targeted exams where dose is matched to clinical indication); or iterative reconstruction. Contrast material: VISI 320; Contrast volume: 75 ml; Contrast route: INTRAVENOUS (IV); COMPARISON: CT head wo con* [id number] 10/01/2021 5:55 PM RADIATION DOSE METRICS: Total DLP (mGy-cm): FINDINGS: Right common carotid artery: No stenosis. No dissection or occlusion. Right internal carotid artery: No stenosis of the extracranial segment. No dissection or occlusion. Right external carotid artery: No occlusion or stenosis of the origin. Left common carotid artery: No stenosis. No dissection or occlusion. Left internal carotid artery: No stenosis of the extracranial segment. No dissection or occlusion. Left external carotid artery: No occlusion or stenosis of the origin. Right vertebral artery: No stenosis. No dissection or occlusion. Left vertebral artery: No stenosis. No dissection or occlusion. Soft tissues: Soft tissues in the neck and thoracic inlet are unremarkable. Bones/joints: No acute fracture. Multilevel disc findings: There is moderate degenerative disc disease in the cervical spine. Lungs: Lung apices are clear. CT/CT angio headneck* [id number] IMPRESSION: No arterial stenosis, occlusion or dissection. REFERENCES: NASCET CRITERIA. The degree of internal carotid artery stenosis is based on NASCET criteria. Normal is no stenosis. Mild is less than 50% stenosis. Moderate is 50-69% stenosis. Severe is 70% to 99% stenosis. Total occlusion is no detectable patent lumen. Radiation Dose CTDIVOL = (mGy): DLP = 2070.69~2070. (mGy-cm)
--- NOTE | 2021-10-01 16:56 | CTR_ITS ---
PROCEDURE INFORMATION: Exam: CT Chest With Contrast; Diagnostic Exam date and time: 10/01/2021 4:56 PM Age: 56 years old Clinical indication: Injury or trauma; Llq; Blunt trauma (contusions or hematomas); Patient HX: Fall C/O L hip/pelvis pain; Additional info: Trauma, AMS TECHNIQUE: Imaging protocol: Diagnostic computed tomography of the chest with contrast. Radiation optimization: All CT scans at this facility use at least one of these dose optimization techniques: automated exposure control; mA and/or kV adjustment per patient size (includes targeted exams where dose is matched to clinical indication); or iterative reconstruction. Contrast material: VISI 320; Contrast volume: 75 ml; Contrast route: INTRAVENOUS (IV); COMPARISON: CR (PELVIS, ) 10/01/2021 5:32 PM RADIATION DOSE METRICS: Total DLP (mGy-cm): 1951.18 FINDINGS: Thyroid: 1.9 cm left thyroid nodule. Follow-up with ultrasound is recommended. Lungs: Unremarkable. No consolidation. No masses. Pleural spaces: Unremarkable. No pneumothorax. No pleural effusion. Heart: Unremarkable. No cardiomegaly. No pericardial effusion. Aorta: Unremarkable. No aortic aneurysm. Lymph nodes: Unremarkable. No enlarged lymph nodes. Bones/joints: Unremarkable. No acute fracture. Soft tissues: Unremarkable. IMPRESSION: 1. No fracture or acute finding. 2. 1.9 cm left thyroid nodule. Follow-up ultrasound recommended. COMMENTS: Consistent with the [employer]'s Incidental Findings Committee white paper (J Am Hugo Radiol 2015): In patients aged 35 years and older with an incidental thyroid nodule equal to or greater than 1.[address], MRI or extrathyroidal US, further evaluation with dedicated thyroid US is recommended for patients with normal life expectancy and without comorbidities. For smaller nodules without suspicious features, no further evaluation or follow up is recommended. PROCEDURE INFORMATION: Exam: CT Abdomen And Pelvis With Contrast Exam date and time: 10/01/2021 4:56 PM Age: 56 years old Clinical indication: Injury or trauma; Llq; Blunt trauma (contusions or hematomas); Patient HX: Fall C/O L hip/pelvis pain; Additional info: Trauma, AMS TECHNIQUE: Imaging protocol: Computed tomography of the abdomen and pelvis with contrast. Radiation optimization: All CT scans at this facility use at least one of these dose optimization techniques: automated exposure control; mA and/or kV adjustment per patient size (includes targeted exams where dose is matched to clinical indication); or iterative reconstruction. Contrast material: VISI 320; Contrast volume: 75 ml; Contrast route: INTRAVENOUS (IV); COMPARISON: CR (PELVIS, ) 10/01/2021 5:32 PM RADIATION DOSE METRICS: Total DLP (mGy-cm): 1951.18 FINDINGS: Liver: Normal. No mass. Gallbladder and bile ducts: Normal. No calcified stones. No ductal dilation. Pancreas: Normal. No ductal dilation. Spleen: Normal. No splenomegaly. Adrenal glands: Normal. No mass. Kidneys and ureters: Fluid density cysts in both kidneys, Hounsfield units less than 20. No follow-up imaging recommended. The kidneys are otherwise unremarkable. No hydronephrosis. Stomach and bowel: Unremarkable. No obstruction. No mucosal thickening. Appendix: The appendix is visualized and is normal. Intraperitoneal space: Unremarkable. No free air. No significant fluid collection. Vasculature: Unremarkable. No abdominal aortic aneurysm. Lymph nodes: Prominent left inguinal lymph node, most likely reactive. Urinary bladder: Unremarkable as visualized. Reproductive: Small calcified fibroid in the anterior uterus. The ovaries are unremarkable. Bones/joints: Scoliosis and degenerative changes of the lumbar spine. The bones are otherwise intact. No fracture. Soft tissues: Small fat containing umbilical hernia. Extensive soft tissue gas in the left pubic mons region, left perineum, medial and posterior left buttock, anterior left abdominal wall, and lower right abdominal wall. Subcutaneous fat stranding in the lower abdominal wall, medial left buttock and left vulvar region. CT/CT chest abd pel w con* IMPRESSION: 1. No fracture identified. 2. Subcutaneous soft tissue gas and stranding in the left abdominal wall, pubic mons region, perineum, and buttock region. In the setting of trauma, this most likely represents dissected gas from a laceration or puncture injury, possibly in the perineum or vulvar region. Clinical correlation recommended. In the absence of trauma, necrotizing soft tissue infection could not be excluded. COMMENTS: Consistent with the [employer]'s Incidental Findings Committee white paper (J Am Hugo Radiol 2018): Any incidental renal lesion less than 1 cm or classified as too small to characterize, or any incidental cystic renal lesion characterized as simple-appearing, is likely benign. No follow-up imaging is recommended for these lesions per consensus recommendations based on imaging criteria. Radiation Dose CTDIVOL = (mGy): DLP = 1951.18~1951.18 (mGy-cm)
[2021-10-01 17:02] LABS: Glucose Point of Care 257 mg/dL (70-110)
[2021-10-01 17:04] LABS: Hematocrit 50.9 % (37.0-47.0); Hemoglobin 16.8 g/dL (11.5-15.3); Mean Corpuscular Hemoglobin 29.2 pg (28.0-34.0); Mean Corpuscular Volume 88.5 fl (81-99); Mean Platelet Volume 9.8 fL (7.4-10.4); Platelet Count 412 10^3/cmm (130-400); Red Blood Count 5.75 10^6/uL (4.1-5.3); Red Cell Distribution Width 13.4 % (12.1-15.1); White Blood Count 28.8 10^3/uL (4.0-10.0)
[2021-10-01 17:29] LABS: Troponin(5th) Baseline 12 ng/L (0-10)
[2021-10-01 17:34] LABS: Alanine Aminotransferase 13 U/L (0-33); Albumin Level 3.6 g/dL (3.5-5.2); Alkaline Phosphatase 161 IU/L (35-105); Anion Gap 35.6 (5-19); Aspartate Amino Transferase 11 U/L (0-32); Blood Urea Nitrogen 23 mg/dL (6-20); Chloride 91 mmol/L (98-107); Globulin 4.2 g/dL (1.3-4.6); Glomerular Filtration Rate 57.6 mL/min (90-130); Glucose 293 mg/dL (65-115); Osmolality Calculated 286 mOsm/kg (285-295); Sodium 131 mmol/L (136-145); Thyroid Stimulating Hormone 0.45 uIU/mL (0.27-4.20); Total Bilirubin 0.3 mg/dL (0.15-1.2); Total Protein 7.8 g/dL (6.6-8.7)
[2021-10-01 17:40] LABS: Carbon Dioxide 7 mmol/L (22-29); Slide Review Slide Review Perform
[2021-10-01 17:41] LABS: Potassium 2.6 mmol/L (3.5-5.1)
[2021-10-01 17:45] LABS: Absolute Segmented Neutrophil 12.7 10/cmm (1.6-7.1); Band Neutrophils Absolute 12.4 10^3/cmm (0.0-1.2); Lymphocytes 1 %; Monocytes Absolute 3.5 10^3/cmm (0.1-0.6); Segmented Neutrophils 44 %; Total Cells Counted 100 (0-100)
[2021-10-01 17:46] LABS: Toxic Granulation 1+
[2021-10-01 17:47] LABS: Absolute Neutrophil 25.1 10^3/cmm (1.4-6.5); Platelet Estimate Increased (Normal)
[2021-10-01 17:48] LABS: Eosinophils 0 %; Lymphocytes Absolute 0.3 10^3/cmm (1.2-3.4)
[2021-10-01 17:51] LABS: Ketone (Acetest) Serum Positive (Negative)
[2021-10-01 17:55] LABS: ABG PH Result 7.13 (7.35-7.45); Arterial Blood Gas Hematocrit 51.8 % (37-47); Base Excess ABG -21.7 mmol/L (-2.0-2.0); Blood Gas Allen Test Pos; Blood Gas Operator Identificat MONRO; Blood Gas Sample Site Radial, left; Blood Gas Sample Type Arterial; Oxygen Device ROOM AIR
[2021-10-01 17:56] LABS: ABG PCO2 15.2 mmHg (35-45)
[2021-10-01 18:03] LABS: Lactic Sepsis W/Reflex 1.8 mmol/L (0.5-2.2); Magnesium 2.5 mg/dL (1.7-2.3)
[2021-10-01] MEDS: iodixanol 320 mg/mL 100mL Btl IV ×2 (18:10→18:11)
[2021-10-01] MEDS: lidocaine 1% 5 ML in potassium chloride premix 100 ML 25 ML IV (18:21)
[2021-10-01] MEDS: potassium chloride ER 20 mEq Tablet 40 MEQ PO (18:26)
[2021-10-01 18:28] VITALS: BP 153/81; PULSE 100; RESP 18; O2SAT 98
--- NOTE | 2021-10-01 18:29 | ECG_ITS ---
[facility] Test Date: 2021-10-01 Pat Name: Martha Villasenor Department: Room: Gender: Female Training Coordinator: : 1965 Requested By: Devendra Church Order Number: [id number] Esmer MD: Lele Grace M.D. Measurements Intervals [place] Rate: 91 P: 64 CO: 148 QRS: -49 QRSD: 100 T: 69 QT: 335 QTc: 412 Interpretive Statements SINUS RHYTHM LEFT ANTERIOR FASCICULAR BLOCK [QRS AXIS <= -45, QR IN I, RS IN II] MODERATE ST DEPRESSION [0.05+ mV ST DEPRESSION] Compared to ECG 10/01/2021 16:25:58 ST (T wave) deviation now present T-wave abnormality no longer present Electronically Signed On 10-02-2021 21:59:35 AIRCRAFT MANAGER by eLle Grace M.D. [id number]
[2021-10-01] MEDS: piperacillin-tazobactam 4.5 GM in sodium chloride 0.9% (plus) 50 ML IV (18:39)
[2021-10-01] MEDS: sodium chloride 0.9% 1,000 ML 999 ML IV ×3 (18:40→19:48)
[2021-10-01] MEDS: clindamycin 900 MG/50 ML PREMIX 100 MG IV (18:49)
[2021-10-01 18:51] VITALS: BP 125/64; PULSE 91; RESP 24; O2SAT 98
[2021-10-01 19:06] VITALS: BP 112/73; PULSE 90; RESP 18; TEMP 36.5; O2SAT 99
[2021-10-01 19:32] LABS: Troponin 5 2HR 11.32 ng/L (0-10)
[2021-10-01 19:33] LABS: Troponin 5 2HR Delta -0.68 ABS# (0-10)
--- NOTE | 2021-10-01 19:49 | PC.NURSE ---
Pt. is being transferred to [facility] for treatment of infection and DKA. Report has been called to Jaclyn SCOTT. waiting on helicopter for transfer.
[2021-10-01 19:51] LABS: Add Urine Microscopic? YES; Bilirubin Urine Neg (Negative); Blood Urine 2+ (Negative); Glucose Urine UA 4+ (Normal); Ketones Urine 2+ (Negative); Leukocyte Esterase Urine Negative (Negative); Nitrate Urine Negative (Negative); Protein Urine 1+ (Negative); Urine Appearance Clear (CLEAR); Urine Color Yellow (Yellow); Urobilinogen Urine Norm (Negative); pH Urine 5 (5-7)
[2021-10-01 19:52] LABS: Add Urine Culture? No; Amorphous Sediment Urine 1+ /hpf; Bacteria Urine TRACE /hpf; RBC Urine 0-4 /hpf (0-2); WBC Urine 0-4 /hpf (0-5)
[2021-10-01 20:00] VITALS: BP 132/79; PULSE 72; RESP 18; O2SAT 100
[2021-10-01 20:03] LABS: Blood Urea Nitrogen 23 mg/dL (6-20); C Reactive Protein 315.6 mg/L (0.0-4.9); Calcium 10.1 mg/dL (8.5-10.5); Chloride 100 mmol/L (98-107); Glomerular Filtration Rate 57.6 mL/min (90-130); Glucose 266 mg/dL (65-115); Osmolality Calculated 295 mOsm/kg (285-295); Sodium 136 mmol/L (136-145)
[2021-10-01 20:14] LABS: Carbon Dioxide 9 mmol/L (22-29)
[2021-10-01] MEDS: morphine 4 mg/mL SDV 1 mL IVP (20:30)
[2021-10-01] MEDS: ondansetron 2 mg/ML SDV 2 mL 4 MG IVP (20:30)
== END 2021-10-01 20:34 ==
PROVIDERS: Emergency Provider Emergency Medicine; PCP Internal Medicine
DX: R42 Dizziness and giddiness (principal); Z79.84 Long term (current) use of oral hypoglycemic drugs; E11.9 Type 2 diabetes mellitus without complications; I10 Essential (primary) hypertension; E78.5 Hyperlipidemia, unspecified
CPT/HCPCS: 36416; 36600; 70450; 70496; 70498; 71260; 72125; 73502; 74177; 80048; 80053; 81001; 82009; 82803; 82962; 83605; 83735; 84443; 84484; 85007; 85025; 86140; 93005; 96365; 96366; 96367; 96375; 99291; 99292; J2270; J2405; J2543; J3370; J3480; J3490; J7030; J7040; Q9967

== ENCOUNTER 2021-11-14 08:27 | Outpatient (CLI) | payer MEDICARE, MEDICAID, SELFPAY | END 2021-11-14 08:28 | disposition home or self-care (01) | LOC: WOUND 08:27 | PROVIDERS: PCP Internal Medicine; Visit Provider Nurse Practitioner Family | DX: T81.89XA Other complications of procedures, not elsewhere classified, initial encounter (principal); Y83.8 Other surgical procedures as the cause of abnormal reaction of the patient, or of later complication, without mention of misadventure at the time of the procedure; E11.9 Type 2 diabetes mellitus without complications | CPT/HCPCS: 11042; 11045; 99213; 99214 ==

== ENCOUNTER 2021-11-22 13:46 | Outpatient (CLI) | payer MEDICARE, MEDICAID, SELFPAY | END 2021-11-22 13:47 | disposition home or self-care (01) | LOC: WOUND 13:47 | PROVIDERS: PCP Internal Medicine; Visit Provider Nurse Practitioner Family | DX: I96 Gangrene, not elsewhere classified (principal); T81.89XA Other complications of procedures, not elsewhere classified, initial encounter; Y83.8 Other surgical procedures as the cause of abnormal reaction of the patient, or of later complication, without mention of misadventure at the time of the procedure; E11.9 Type 2 diabetes mellitus without complications | CPT/HCPCS: 11042; 11045 ==

== ENCOUNTER 2021-12-08 08:45 | Outpatient (CLI) | payer MEDICARE, MEDICAID, SELFPAY | END 2021-12-08 08:46 | disposition home or self-care (01) | LOC: WOUND 08:46 | PROVIDERS: PCP Internal Medicine; Visit Provider Emergency Medicine | DX: T81.89XA Other complications of procedures, not elsewhere classified, initial encounter (principal); Y83.8 Other surgical procedures as the cause of abnormal reaction of the patient, or of later complication, without mention of misadventure at the time of the procedure; E11.9 Type 2 diabetes mellitus without complications | CPT/HCPCS: 11042; 11045 ==

== ENCOUNTER → 2021-12-15 07:22 | Outpatient (BNVA) | payer MEDICARE, MEDICAID, SELFPAY | PROVIDERS: PCP Internal Medicine; Visit Provider Nurse Practitioner | DX: F70 Mild intellectual disabilities (principal); F25.1 Schizoaffective disorder, depressive type | CPT/HCPCS: 99214 ==

== ENCOUNTER 2022-01-31 10:07 | Outpatient (CLI) | payer MEDICARE, MEDICAID, SELFPAY | END 2022-01-31 10:08 | disposition home or self-care (01) | LOC: WOUND 10:08 | PROVIDERS: PCP Internal Medicine; Visit Provider Emergency Medicine | DX: E11.69 Type 2 diabetes mellitus with other specified complication (principal); T81.89XD Other complications of procedures, not elsewhere classified, subsequent encounter; S31.104D Unspecified open wound of abdominal wall, left lower quadrant without penetration into peritoneal cavity, subsequent encounter; X58.XXXD Exposure to other specified factors, subsequent encounter; Y83.8 Other surgical procedures as the cause of abnormal reaction of the patient, or of later complication, without mention of misadventure at the time of the procedure | CPT/HCPCS: 11042; 11045; 87070; 87077; 87176; 87186; 87205; 99213 ==

== ENCOUNTER → 2022-04-04 13:40 | Outpatient (BNVA) | payer MEDICARE, MEDICAID, SELFPAY | PROVIDERS: PCP Internal Medicine; Visit Provider Emergency Medicine | DX: I96 Gangrene, not elsewhere classified (principal); L98.492 Non-pressure chronic ulcer of skin of other sites with fat layer exposed | CPT/HCPCS: 11042 ==

== ENCOUNTER → 2022-05-17 08:19 | Outpatient (BNVA) | payer MEDICARE, MEDICAID, SELFPAY | PROVIDERS: PCP Internal Medicine; Visit Provider Nurse Practitioner Family | DX: M72.6 Necrotizing fasciitis (principal); L98.492 Non-pressure chronic ulcer of skin of other sites with fat layer exposed | CPT/HCPCS: 11042; 87070; 87077; 87176; 87186; 87205 ==

== ENCOUNTER 2022-05-26 13:19 | Outpatient (CLI) | payer MEDICARE, MEDICAID, SELFPAY ==
[2022-05-26 14:21] LABS: Estmated Average Glucose 220; Hemoglobin A1C 9.3 % (4.0-6.0)
== END 2022-05-26 13:20 | disposition home or self-care (01) ==
PROVIDERS: PCP Internal Medicine; Visit Provider Internal Medicine
DX: E11.9 Type 2 diabetes mellitus without complications (principal)
CPT/HCPCS: 83036

== ENCOUNTER → 2022-08-02 13:22 | Outpatient (BNVA) | payer MEDICARE, MEDICAID, SELFPAY | PROVIDERS: PCP Internal Medicine; Visit Provider Thoracic Surgery (Cardiothoracic Vascular Surgery) | DX: Z09 Encounter for follow-up examination after completed treatment for conditions other than malignant neoplasm (principal); L98.491 Non-pressure chronic ulcer of skin of other sites limited to breakdown of skin | CPT/HCPCS: 97597; 99213 ==

== ENCOUNTER → 2022-11-14 15:02 | Outpatient (BNVA) | payer MEDICARE, MEDICAID, SELFPAY | PROVIDERS: PCP Internal Medicine; Visit Provider Thoracic Surgery (Cardiothoracic Vascular Surgery) | DX: M72.6 Necrotizing fasciitis (principal) | CPT/HCPCS: G0463 ==

== ENCOUNTER → 2022-11-22 10:30 | Outpatient (BNVA) | payer MEDICARE, MEDICAID, SELFPAY | PROVIDERS: PCP Internal Medicine; Visit Provider Thoracic Surgery (Cardiothoracic Vascular Surgery) | DX: M72.6 Necrotizing fasciitis (principal) | CPT/HCPCS: 99212 ==

== ENCOUNTER → 2022-11-30 11:40 | Outpatient (BNVA) | payer MEDICARE, MEDICAID, SELFPAY | PROVIDERS: PCP Internal Medicine; Visit Provider Thoracic Surgery (Cardiothoracic Vascular Surgery) | DX: T81.31XD Disruption of external operation (surgical) wound, not elsewhere classified, subsequent encounter (principal); Y83.8 Other surgical procedures as the cause of abnormal reaction of the patient, or of later complication, without mention of misadventure at the time of the procedure ==

== ENCOUNTER 2023-05-23 11:44 | Outpatient (CLI) | payer OTHER, SELFPAY ==
--- NOTE | 2023-05-23 11:51 | MM_ITS ---
WS: [id number] BILATERAL 3D TOMOSYNTHESIS DIGITAL SCREENING MAMMOGRAPHY WITH CAD CLINICAL INFORMATION: SCREENING HISTORY: Screening mammogram. No current complaints. COMPARISON: 2019 TECHNIQUE: Bilateral CC and MLO views. FINDINGS: Scattered fibroglandular densities bilaterally. Spiculated asymmetric density upper outer RIGHT breas t with increasing calcifications. Recommend further evaluation with RIGHT diagnostic mammography and ultrasound. Area of spiculation has a suspicious appearance measuring 2.6 x 1.6 cm. This is new since 2019. LEFT breast is unchanged. IMPRESSION: MM/[place] [id number] BI-RADS: 0-Incomplete: Need additional imaging evaluation FOLLOW UP: Need Additional Imaging Recommend RIGHT breast diagnostic mammography and ultrasound in further evaluat ion.
== END 2023-05-23 11:45 | disposition home or self-care (01) ==
LOC: RAD 11:44
PROVIDERS: PCP Internal Medicine; Visit Provider Internal Medicine
DX: R92.1 Mammographic calcification found on diagnostic imaging of breast (principal)
CPT/HCPCS: 77063; 77067

== ENCOUNTER 2023-06-28 14:58 | Outpatient (CLI) | payer MEDICARE, MEDICAID, SELFPAY ==
--- NOTE | 2023-06-28 15:08 | MM_ITS ---
WS: [id number] RIGHT 3D TOMOSYNTHESIS DIGITAL MAMMOGRAPHY WITH CAD CLINICAL INFORMATION: ABNORMAL MAMMO HISTORY: Additional views COMPARISON: May 23, 2023 TECHNIQUE: 3 views of the right breast were obtained. FINDINGS: Scattered fibroglandular densities of the right breast. Dense asymmetric density upper outer RIGHT br east with increasing calcifications persists on spot compression views but less distinct today. Ultra sound described below. ULTRASOUND BREAST RIGHT TECHNIQUE: Ultrasound right breast focused area of concern. CLINICAL INFORMATION: ABNORMAL MAMMO FINDINGS: Ultrasound RIGHT breast upper outer quadrant at the 9 to 12:00 position. Normal underlying dense pare nchymal tissue. Dense fibrotic tissue at the 10:00 position likely corresponds to mammographic findin gs. No focal cystic or solid lesions to target for biopsy. No other suspicious ultrasound findings. D ense fibrotic area is probably benign. Recommend 6 month follow-up. In addition, Recommend 6 month follow-up RIGHT diagnostic mammography in this area with spot magnifi cation views considering punctate slightly increasing calcifications MM/[place] [id number] IMPRESSION: BI-RADS: 3-Probably Benign FOLLOW UP: 6 Month Follow-up Recommend 6 month follow-up RIGHT breast diagnostic mammography with spot magni fication views due to the slightly increasing tiny punctate calcifications. In addition, recommend ultrasound at that time to confirm stability of the above-d escribed dense fibrotic area
== END 2023-06-28 14:59 | disposition home or self-care (01) ==
PROVIDERS: PCP Internal Medicine; Visit Provider Internal Medicine
DX: R92.8 Other abnormal and inconclusive findings on diagnostic imaging of breast (principal)
CPT/HCPCS: 76642; 77061; G0279

== ENCOUNTER 2023-07-09 12:04 | Outpatient (CLI) | payer MEDICARE, MEDICAID, SELFPAY ==
--- NOTE | 2023-07-09 12:11 | CT_ITS ---
WS: [id number] CT NECK TECHNIQUE: Contrast-enhanced CT of the neck with coronal and sagittal reformatted images. CLINICAL INFORMATION: OTALGIA,BILATERAL COMPARISON: None. DLP: 239.[address] scans at [facility] use at least one of these dose optimization techniques: automated e xposure control; mA and/or kV adjustment per patient size (includes targeted exams where dose is matc hed to clinical indication); or iterative reconstruction. FINDINGS: Paranasal sinuses and mastoid air cells are well aerated. Normal posterior nasopharynx. Normal paraph aryngeal fat. Parotid glands are normal. Incidental intraparotid lymph nodes. Normal submandibular gl ands. Tongue base appears normal. A few punctate tonsillar calcifications. No evidence of supraglotti c or glottic mass. Normal subglottic airway. Multinodular thyroid with bulky left thyroid nodules the largest measuring 1.9 x 2.0 cm. No cervical lymphadenopathy. Lung apices are well aerated. Moderate spondylitic changes cervical spine. Disc oste ophyte complexes worse at C5-C6 with mild to moderate central canal stenosis. IMPRESSION: 1. No evidence of supraglottic or glottic mass. 2. Salivary glands are normal in appearance. 3. Paranasal sinuses and mastoid air cells well aerated. Normal posterior nasopharynx. 4. Multinodular thyroid with bulky left thyroid nodules. This can followed up with ultrasound. 5. No other suspicious findings.
[2023-07-09] MEDS: iohexol 350 mg/mL 500 mL Btl (per mL) IV (12:48)
== END 2023-07-09 12:05 | disposition home or self-care (01) ==
PROVIDERS: PCP Internal Medicine; Visit Provider Specialist
DX: H92.03 Otalgia, bilateral (principal); E04.2 Nontoxic multinodular goiter
CPT/HCPCS: 70491; Q9967

== ENCOUNTER 2023-07-13 14:24 | Outpatient (CLI) | payer MEDICARE, MEDICAID, SELFPAY ==
[2023-07-13 15:34] LABS: Free T4 Free Thyroxine 1.22 ng/dL (0.82-1.77); Thyroid Stimulating Hormone 2.23 uIU/mL (0.27-4.20)
== END 2023-07-13 14:25 | disposition home or self-care (01) ==
PROVIDERS: PCP Internal Medicine; Visit Provider Specialist
DX: E04.1 Nontoxic single thyroid nodule (principal)
CPT/HCPCS: 36415; 84439; 84443

== ENCOUNTER → 2023-09-21 10:12 | Outpatient (BNVA) | payer MEDICARE, MEDICAID, SELFPAY | PROVIDERS: PCP Internal Medicine; Visit Provider Podiatrist Foot & Ankle Surgery | DX: B35.1 Tinea unguium (principal); G62.9 Polyneuropathy, unspecified; L84 Corns and callosities; E11.42 Type 2 diabetes mellitus with diabetic polyneuropathy; Z79.4 Long term (current) use of insulin | CPT/HCPCS: 99213 ==

== ENCOUNTER 2024-02-07 13:41 | Outpatient (CLI) | payer MEDICARE, MEDICAID, SELFPAY ==
--- NOTE | 2024-02-07 13:51 | MM_ITS ---
WS: [id number] RIGHT 3D TOMOSYNTHESIS DIGITAL MAMMOGRAPHY WITH CAD CLINICAL INFORMATION: 6 mo fu calcs HISTORY: 6-month follow-up COMPARISON: 05/23/2023 and 06/28/2023 TECHNIQUE: 3 views of the right breast were obtained. FINDINGS: Scattered fibroglandular densities of the right breast. Spot magnification views obtained of the calc ifications. Again seen is the dense asymmetric tissue upper outer RIGHT breast with punctate calcific ations. Spot magnification views demonstrate loosely clustered punctate calcifications similar in yojana earance to the prior examination. Calcifications are stable in appearance. Ultrasound of the dense br east tissue in this area is pending. ULTRASOUND BREAST RIGHT TECHNIQUE: Ultrasound right breast focused area of concern. CLINICAL INFORMATION: 6 mo fu calcs COMPARISON: 06/28/2023 FINDINGS: Ultrasound RIGHT breast at the 10 o'clock position 5 cm from the nipple again demonstrates dense fibr otic parenchymal tissue. No cystic or solid lesions. No suspicious lesions to target for biopsy. IMPRESSION: MM/[place] [id number] BI-RADS: 2-Benign FOLLOW UP: 1 Year Follow-up Recommend return to annual screening mammography.
== END 2024-02-07 13:42 | disposition home or self-care (01) ==
LOC: RAD 13:42
PROVIDERS: PCP Internal Medicine; Visit Provider Internal Medicine
DX: R92.1 Mammographic calcification found on diagnostic imaging of breast (principal); R92.321 Mammographic fibroglandular density, right breast; R92.8 Other abnormal and inconclusive findings on diagnostic imaging of breast
CPT/HCPCS: 76642; 77061; G0279

== ENCOUNTER 2024-03-26 09:52 | Inpatient (IN) | payer MEDICARE, MEDICAID, SELFPAY ==
[2024-03-26] VITALS (22 sets, daily range): BP systolic 113–141; BP diastolic 7–83; PULSE 78–134; RESP 12–30; TEMP 37–39.4; O2SAT 88–95; BMI 41.9
--- NOTE | 2024-03-26 10:04 | XR_ITS ---
WS: [id number] XR chest 1V [id number] REASON FOR EXAM: shortness of breath FINDINGS: Mild tortuosity of the thoracic aorta. Normal heart size. Calcified granulomas disease in both hemithoraces. No acute pulmonary parenchymal or pleural abnormality. Mild thoracic scoliosis with mild degenerative spondylosis in the mid and lower thoracic spine. 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 XR/XR chest 1V [id number] IMPRESSION: No acute chest abnormality.
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
--- NOTE | 2024-03-26 10:08 | CT_ITS ---
WS: [id number] CT HEAD TECHNIQUE: Noncontrast CT of the head obtained from the skullbase to the vertex. CLINICAL INFORMATION: Encephalopathy, altered mental status COMPARISON: 2020 DLP: 2732.[address] scans at [facility] use at least one of these dose optimization techniques: automated e xposure control; mA and/or kV adjustment per patient size (includes targeted exams where dose is matc hed to clinical indication); or iterative reconstruction. FINDINGS: No evidence of intracranial hemorrhage or mass effect. Ventricular system and basal cisterns are cyr nt. Mild small vessel changes with mild parenchymal volume loss. No extra-axial fluid collections. No evidence of mass or mass effect. Normal ndiaye-white differentiation. Paranasal sinuses and mastoid air cells are well aerated. .Normal visualized soft tissues. CT/CT head wo con* [id number] IMPRESSION: 1. No evidence of intracranial hemorrhage or mass effect. 2. No acute intracranial findings.
[2024-03-26] MEDS: ibuprofen 800 mg tablet PO (10:12)
[2024-03-26 10:18] LABS: ABG PCO2 40.4 mmHg (35-45); ABG PH Result 7.42 (7.35-7.45); Alveolar-Arterial Oxygen Gradi 15.5 mmHg (5-10); Arterial Blood Gas Hematocrit 46.4 % (37-47); Base Excess ABG 1.8 mmol/L (-2.0-2.0); Blood Gas Allen Test Pos; Blood Gas Operator Identificat CAK; Blood Gas Sample Site Brachial, left; Blood Gas Sample Type Arterial; Carboxyhemoglobin 1.6 %THgb (0.4-20.1); HCO3 ABG 26.4 mmol/L (22-26); HGB O2 Sat 91.3 % (95-100); Ionized Calcium Level - ABG 1.2 mmol/L (1.1-1.4); Methemoglobin < 0.0 % (0.4-1.5); Oxygen Device NC; Oxygen Saturation ABG 92.5; PO2 ABG 58.4 mmHg (80.0-100.0); PO2 FiO2 Ratio Arterial Blood 0; Potassium Level - ABG 4.1 mmol/L (3.5-5.0); Total Hemoglobin 15.1 g/dL (12-16)
--- NOTE | 2024-03-26 10:29 | PC.PHAR ---
PT IS FROM [facility]
[2024-03-26 10:55] LABS: Basophils # 0.1 10^3/uL (0.0-0.1); Basophils % 0.5 %; Eosinophils % 0.1 %; Hematocrit 47.7 % (36-47); Lymphocytes # 0.8 10^3/uL (0.8-4.8); Lymphocytes % 3.3 %; Mean Corpuscular HGB Conc 31.2 g/dL (30-55); Mean Corpuscular Hemoglobin 27.5 pg (27-33); Monocytes # 1.4 10^3/uL (0.2-0.9); Monocytes % 6.1 %; Neutrophils # 21.01 10^3/uL (1.8-7.7); Neutrophils % 89.3 %; Nucleated Red Blood Cells % 0 %; Platelet Count 312 10^3/cmm (157-399); Red Blood Count 5.42 10^6/uL (3.85-5.65); Red Cell Distribution Width 14.5 % (12.1-15.1); White Blood Count 23.51 10^3/uL (3.29-11.43)
--- NOTE | 2024-03-26 10:57 | ECG_ITS ---
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 Measurements Intervals [place] Rate: 123 P: 68 [place]: 179 QRS: -51 QRSD: 98 T: 73 QT: 317 QTc: 454 Interpretive Statements SINUS TACHYCARDIA LEFT ANTERIOR FASCICULAR BLOCK [QRS AXIS <= -45, QR IN I, RS IN II] LEFT VENTRICULAR HYPERTROPHY AND ST-T CHANGE [VOLTAGE CRITERIA PLUS ST/T ABNORMALITY] POSSIBLE ANTERIOR MYOCARDIAL INFARCTION , PROBABLY OLD [30 ms Q WAVE IN V3/V4, OR R < 0.2 mV IN V4] Compared to ECG 10/01/2021 19:49:28 Left ventricular hypertrophy now present Myocardial infarct finding now present Sinus rhythm no longer present ST (T wave) deviation still present Electronically Signed On 03-26-2024 16:49:30 CDT by Lele Grace M.D. [id number]
[2024-03-26 11:02] LABS: Bilirubin Urine Neg (Negative); Blood Urine Neg (Negative); Glucose Urine UA 4+ (Normal); Ketones Urine 1+ (Negative); Leukocyte Esterase Urine Negative (Negative); Nitrate Urine Negative (Negative); Protein Urine Neg (Negative); Urine Appearance Clear (CLEAR); Urine Color Yellow (Yellow); Urobilinogen Urine Norm (Negative); pH Urine 5 (5-7)
[2024-03-26 11:05] LABS: Add Urine Culture? No; Squamous Epithelial Cell Urine 0-4 /hpf (0-5)
[2024-03-26 11:07] LABS: Ketone (Acetest) Serum Negative (Negative)
[2024-03-26 11:13] LABS: Lactic Sepsis W/Reflex 2.1 mmol/L (0.5-2.2); Troponin(5th) Baseline 18 ng/L (0-10)
[2024-03-26 11:23] LABS: NT Pro B Type Natriuretic Pept < 36 pg/mL (0-125); Procalcitonin 0.26 ng/mL (0-0.5)
[2024-03-26 11:34] LABS: Alanine Aminotransferase 13 U/L (0-33); Alkaline Phosphatase 106 U/L (35-105); Anion Gap 17.3 (5-19); Aspartate Amino Transferase 14 U/L (0-32); Blood Urea Nitrogen 15 mg/dL (6-20); C Reactive Protein 14.2 mg/L (0.0-4.9); Calcium 8.9 mg/dL (8.5-10.5); Carbon Dioxide 24 mmol/L (22-29); Chloride 99 mmol/L (98-107); Globulin 3.3 g/dL (1.3-4.6); Glomerular Filtration Rate 73.7 mL/min (90-130); Glucose 350 mg/dL (65-115); Osmolality Calculated 297 mOsm/kg (285-295); Potassium 4.3 mmol/L (3.5-5.1); Sodium 136 mmol/L (136-145); Total Bilirubin 0.3 mg/dL (0.15-1.2); Total Protein 7.3 g/dL (6.6-8.7)
--- NOTE | 2024-03-26 12:05 | ECG_ITS ---
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 Measurements Intervals [place] Rate: 114 P: 56 NM: 176 QRS: -54 QRSD: 98 T: 64 QT: 362 QTc: 499 Interpretive Statements SINUS TACHYCARDIA LEFT ANTERIOR FASCICULAR BLOCK [QRS AXIS <= -45, QR IN I, RS IN II] MODERATE VOLTAGE CRITERIA FOR LVH, CONSIDER NORMAL VARIANT [MEETS CRITERIA IN ONE OF: R(aVL), S(V1), R(V5), R(V5/V6)+S(V1)] POSSIBLE ANTERIOR MYOCARDIAL INFARCTION , OF INDETERMINATE AGE [30 ms Q WAVE IN V3/V4, OR R < 0.2 mV IN V4] Compared to ECG 03/26/2024 10:57:27 ST (T wave) deviation no longer present Myocardial infarct finding still present Electronically Signed On 03-26-2024 16:57:00 CDT by Lele Grace M.D. [email or web address]
[2024-03-26 12:36] LABS: Reflex Lactate Order REFLEX LACTIC ORDERD
[2024-03-26 12:55] LABS: Troponin 5 2HR 18.82 ng/L (0-10); Troponin 5 2HR Delta 0.82 ABS# (0-10)
--- NOTE | 2024-03-26 13:00 | CT_ITS ---
WS: [id number] CTA OF THE CHEST WITH PULMONARY EMBOLISM PROTOCOL TECHNIQUE: High-resolution contrast enhanced CTA of the chest with coronal and sagittal reformatted i mages with pulmonary embolism protocol. MIP images are also reviewed. CLINICAL INFORMATION: hypoxemia, tachycardia COMPARISON: None. DLP: 500.[address] scans at [facility] use at least one of these dose optimization techniques: automated e xposure control; mA and/or kV adjustment per patient size (includes targeted exams where dose is matc hed to clinical indication); or iterative reconstruction. FINDINGS: Shallow inspiration. Elevation RIGHT hemidiaphragm. Proximal main pulmonary arteries are normal. Norm al segmental and subsegmental pulmonary arteries. No evidence of pulmonary embolus. Normal caliber thoracic aorta. Multinodular goiter with large LEFT thyroid lobe. Lungs are otherwise well aerated. Slight bibasal atelectasis. No focal pneumonia or pleural fluid. Adrenal glands are normal. Small esophageal hernia. Contained large ventral abdominal wall hernia wit h herniated distal stomach, duodenum, and transverse colon. Partially visualized LEFT renal cyst. Percy cified LEFT splenic artery aneurysm at the splenic hilum measuring 8 mm unchanged since 2020 CT/CT angio chest PE protcl [id number] IMPRESSION: 1. No evidence of pulmonary embolus 2. Slight bibasilar atelectasis with shallow inspiration. 3. Partially visualized rectus abdominous diastases with contained ventral abd ominal wall hernia. No evidence of bowel obstruction.
[2024-03-26] MEDS: sodium chloride 0.9% 1,000 ML 999 ML IV (13:08)
[2024-03-26 13:11] LABS: Lactic Acid level (Lactate) 1.2 mmol/L (0.5-2.2)
[2024-03-26] MEDS: iohexol 350 mg/mL 500 mL Btl (per mL) IV ×2 (13:34→17:20)
[2024-03-26 14:29] LABS: Adenovirus Not Detected (NOT DETECT); Chlamydia Pneumoniae Not Detected (NOT DETECT); Coronavirus 229E,HKU1,NL63,OC4 Not Detected (NOT DETECT); Human Metapneumovirus Not Detected (NOT DETECT); Human Rhinovirus/Enterovirus Not Detected (NOT DETECT); Influenza A Not Detected (NOT DETECT); Influenza A H1 Not Detected (NOT DETECT); Influenza A H1-2009 Not Detected (NOT DETECT); Influenza A H3 Not Detected (NOT DETECT); Influenza B Not Detected (NOT DETECT); Mycoplasma Pneumoniae Not Detected (NOT DETECT); Parainfluenza Virus Type 1 Not Detected (NOT DETECT); Parainfluenza Virus Type 2 Not Detected (NOT DETECT); Parainfluenza Virus Type 3 Not Detected (NOT DETECT); Parainfluenza Virus Type 4 Not Detected (NOT DETECT); Respiratory Syncytial Virus A Not Detected (NOT DETECT); Respiratory Syncytial Virus B Not Detected (NOT DETECT); SARS-COV-2 Not Detected (NOT DETECT)
--- NOTE | 2024-03-26 14:57 | CTR_ITS ---
PROCEDURE INFORMATION: Exam: CT Abdomen And Pelvis With Contrast Exam date and time: 03/26/2024 5:06 PM Age: 59 years old Clinical indication: Abdominal pain TECHNIQUE: Imaging protocol: Computed tomography of the abdomen and pelvis with contrast. Radiation optimization: All CT scans at this facility use at least one of these dose optimization techniques: automated exposure control; mA and/or kV adjustment per patient size (includes targeted exams where dose is matched to clinical indication); or iterative reconstruction. Contrast material: OMNI 350; Contrast volume: 100 ml; Contrast route: INTRAVENOUS (IV); COMPARISON: CT chest abd pel w con* 10/01/2021 6:06 PM RADIATION DOSE METRICS: Total DLP (mGy-cm): 1303.5 FINDINGS: Lungs: Lung bases are clear. No pleural effusion. Liver: Normal. No mass. Gallbladder and bile ducts: Normal. No calcified stones. No ductal dilation. Pancreas: Normal. No ductal dilation. Spleen: Normal. No splenomegaly. Adrenal glands: Normal. No mass. Kidneys and ureters: 5 cm cyst involves the left kidney. Stomach and bowel: There is a large hernia involving the upper anterior abdominal wall that contains multiple loops of bowel as well as the stomach. A smaller hernia is noted just above the umbilicus containing small bowel. Appendix: No evidence of appendicitis. Intraperitoneal space: Unremarkable. No free air. No significant fluid collection. Vasculature: Unremarkable. No abdominal aortic aneurysm. Lymph nodes: Unremarkable. No enlarged lymph nodes. Urinary bladder: A Zee catheter is in good position within the bladder. Reproductive: Unremarkable as visualized. Bones/joints: Unremarkable. No acute fracture. Soft tissues: See Stomach and bowel finding. CT/CT abdomen pelvis w con* [id number] IMPRESSION: 1. Large hernias involving the anterior abdominal wall 2. A benign renal cyst or cysts have been detected. No further follow-up imaging is required. COMMENTS: Consistent with the [place] [employer]'s Incidental Findings Committee white paper (J Am Hugo Radiol 2018): Any incidental renal lesion less than 1 cm or classified as too small to characterize, or any incidental cystic renal lesion characterized as simple-appearing, is likely benign. No follow-up imaging is recommended for these lesions per consensus recommendations based on imaging criteria.
[2024-03-26] MEDS: levofloxacin-dextrose 5 % 750 MG/150 ML PREMIX 100 MG IV (15:09)
[2024-03-26] MEDS: methylPREDNISolone sod succ 125 mg/2 mL INJ IVP (15:13)
[2024-03-26] MEDS: albuterol 2.5 mg/3 mL Neb INHALATION (15:28)
[2024-03-26 16:49] LABS: Troponin 5 6HR 20.95 ng/L (0-10); Troponin 5 6HR Delta 2.95 ng/L (0-12)
[2024-03-26] MEDS: HYDROcodone-acetaminophen 10-325 mg Tablet 1 TAB PO (17:16)
--- NOTE | 2024-03-26 18:39 | P.HP_ITS ---
Providers/Chief Complaint 2 Primary Care Provider: Roebrth Mendez MD Chief Complaint: vaginal bleeding History of Present Illness Martha Villasenor is a 59 year old female resident of residential mild intellectual disability presented to the hospital with chief complaint of fever confusion. Caregiver is at the bedside stating that Martha woke up and she was experiencing difficulty finding appropriate words to describe her needs, at that time she also noticed fever of 103. There was no headache or neck pain nausea vomiting. At the time of my evaluation patient is stating that she start experiencing headache while laying supine on the ER hospital bed, this headache was not present at home, she has not noticed any blurry vision today, she is denying dysuria, abdominal pain, diarrhea, shortness of breath, sore throat, sinus pressure or tenderness, 2 weeks ago she had dental extraction. She is denying dysphagia or pain in her gums or teeth. Extensive workup in the ER revealed significant leukocytosis without high lactic acid, she is tachycardic with tachypnea she does have right upper quadrant tenderness on my physical exam Liver enzymes are normal Cardiac enzymes are trending down Viral panel is negative There is no endorgan damage does not meet sepsis criteria however lactic acid cultures antibiotics administered, IV fluids given Patient has not eaten since 9 AM, CT abdomen pelvis showed ventral hernia with loops of bowel however there is no sign of obstruction. She does not have typical meningitis features Kernig's and Brudzinski's sign negative No sacral ulcer She has a mild buttocks skin tear Review of Systems 2 Const: Reports: fever(s) and chills Eyes: Denies: change in vision ENMT: Denies: throat pain Card: Denies: chest pain Resp: Denies: dyspnea GI: Denies: abdominal pain : Denies: flank pain Musc: Reports: back pain Skin/Breast: Reports: rash Neuro: Reports: headache(s) Psych: Reports: anxiety Medications/Allergies Home Medications Medication Instructions Recorded Confirmed Last Taken Type Diabetic Shoes #1 ea 06/10/20 03/26/24 Unknown Rx Night Splint #1 ea 08/25/21 03/26/24 Unknown Rx acetaminophen 650 mg 650 mg PO .Q6HRS PRN Pain 12/05/21 03/26/24 Unknown History tablet,extended release insulin glargine 100 unit/mL 40 unit SUBCUT BEDTIME 12/05/21 03/26/24 Unknown History subcutaneous solution (Lantus U-100 Insulin) olanzapine 5 mg tablet 5 mg PO BEDTIME 12/05/21 03/26/24 Unknown History dapagliflozin propanediol 10 mg 10 mg PO DAILY #90 tabs 12/07/21 03/26/24 Unknown Rx tablet (Farxiga) guaifenesin 100 mg/5 mL oral 200 mg PO Q4H PRN Cough 03/26/24 03/26/24 Unknown History liquid (Altagracia-Tussin) hydrocodone 5 mg-acetaminophen 325 0.5 - 1 tab PO Q6H PRN Pain 03/26/24 03/26/24 Unknown History mg tablet insulin aspart U-100 100 unit/mL 5 unit SUBCUT TID 03/26/24 03/26/24 Unknown History (3 mL) subcutaneous pen (Novolog FlexPen U-100 Insulin aspart) loratadine 10 mg tablet 10 mg PO DAILY 03/26/24 03/26/24 Unknown History olanzapine 2.5 mg tablet 2.5 mg PO QAM 03/26/24 03/26/24 Unknown History Allergies Allergy/AdvReac Type Severity Reaction Status Date / Time No Known Allergies Allergy Verified 09/21/23 10:20 PFSH Acute 2 PFSH: Medical History (Updated 03/26/24 @ 19:21 by Jeffrey Garcia MD) Peripheral neuropathy Necrotizing fasciitis Abdominal wall status post colostomy, developed ventral hernia Mild intellectual disabilities Schizoaffective disorder, depressive type Diabetes mellitus No changes till I can see her in person. Pure hypercholesterolemia, unspecified Family History Mother Diabetes CAD (coronary artery disease) Heart disease Social History Smoking and tobacco/nicotine status: never used tobacco/nicotine Second hand smoke exposure: No Alcohol intake: never Substance/Drug Use: never Adopted: No Caregiver/support person: Yes Lives independently: No Household members: family Marital status: Single service: No Current occupational status: disabled Current gender identity: Female Special jose needs: No Agree to transfusion: Yes Vitals/I&O/Wt Last Vital Signs Temp 99.2 F 03/26/24 12:58 Pulse 90 03/26/24 16:37 Resp 19 H 03/26/24 16:37 BP 133/63 03/26/24 16:37 Pulse Ox 93 03/26/24 16:37 O2 Del Method Nasal Cannula 03/26/24 16:37 O2 Flow Rate 4 03/26/24 16:37 03/26/24 03/26/24 03/26/24 06:59 14:59 22:59 Intake Total 150 / 150 Balance 150 / 150 Physical Exam 2 Narrative: Awake and alert Nonfocal neuroexam No sign of meningitis No sign of stroke S1, S2 Currently on room air Morbidly obese Ventral hernia No abdominal tenderness Right upper quadrant tenderness elicited Walters sign positive GCS 15 No active sign of confusion or stroke Able to follow commands No skin tear around sacral area however mild skin tear noted around buttocks Data 03/26/24 10:15 03/26/24 10:15 Micro: Microbiology 03/26/24 10:42 Blood Culture - Preliminary Blood SPECIMEN COLLECTED 03/26/24 10:15 Blood Culture - Preliminary Blood SPECIMEN COLLECTED A&P Assessment and plan (1) Schizoaffective disorder, depressive type: (2) Diabetes mellitus: Qualifiers: Diabetes mellitus type: type 2 Diabetes mellitus terminal operator insulin use: without usp use Diabetes mellitus complication status: without complication Qualified Code(s): E11.9 - Type 2 diabetes mellitus without complications (3) Diabetic foot: (4) Mild intellectual disabilities: (5) Fever: (6) Headache: (7) Positive Walters's Sign: Plan Fever with confusion noticed by the family member this morning No active complaints at this time No sign of stroke CTA rule out PE no sign of consolidation mild atelectasis at the base Currently on room air 103 fever No active confusion No skin tear Walters sign positive right upper quadrant tenderness will request gallbladder ultrasound CT abdomen pelvis unremarkable other than ventral hernia without any sign of obstruction UA unremarkable Liver panel unremarkable Viral panel unremarkable Full code Consistent carb diet Start insulin with sliding scale Patient has mild intellectual disability, She does not have typical meningitis features I will go ahead start her on vancomycin and Zosyn CSF panel I do not have any active source of infection Please note she had dental extraction 2 weeks ago, she is not complaining of dysphagia hoarseness of voice or pain in her teeth DVT prophylaxis added Information has been taken from the patient secondary to intellectual disability most information has been collected from the caregiver who is at the bedside Attestations 2 Medical Necessity Statement*: More than 2 midnights anticipated Diagnoses Schizoaffective disorder, depressive type F25.1 Type 2 diabetes mellitus without complication, without long-term current use of insulin E11.9 Diabetes mellitus type: type 2 Diabetes mellitus usp insulin use: without terminal operator use Diabetes mellitus complication status: without complication Diabetic foot E11.8 Mild intellectual disabilities F70 Fever R50.9 Headache R51.9 Positive Walters's Sign R19.8
--- NOTE | 2024-03-26 19:21 | USR_ITS ---
PROCEDURE INFORMATION: Exam: US Abdomen, Limited; Right Upper Quadrant Exam date and time: 03/26/2024 7:51 PM Age: 59 years old Clinical indication: Other: Admitted from er presenting with altered mental status and SOB, obesity, dm2, hl; Prior surgery; Surgery date: 1-6 months; Surgery type: Abdominal surgery for necrotizing fascitis, post-op large ventral hernias. ; Additional info: Walters sign positive, fever TECHNIQUE: Imaging protocol: Real time ultrasound of the abdomen with image documentation. Limited exam focused on the right upper quadrant. COMPARISON: CT abdomen pelvis w con* [id number] 03/26/2024 5:06 PM FINDINGS: Liver: Echogenic, consistent with fatty infiltration. Gallbladder: No gallstones. No gallbladder wall thickening or pericholecystic fluid. Negative sonographic Walters's sign, as per the performing pest locator. Biliary ducts: Normal. No stones. No dilation. Pancreas: Unremarkable as visualized. Right kidney: No mass. No definite stones. No hydronephrosis. US/US gall bladder [id number] IMPRESSION: Fatty liver.
[2024-03-26 19:58] LABS: Procalcitonin 0.23 ng/mL (0-0.5)
--- NOTE | 2024-03-26 20:30 | USCV_ITS ---
Martha Villasenor Age: 59 Gender: F : 1965 Exam Date: 03/26/2024 22:57 Ordering Phys: Jeffrey Garcia MD Technologist: [email or web address] Exam Location: [facility] Indication: fever, SOB, AMS, obesity. BP: 130 / 70 HR: 88 Rhythm: Sinus Technical Quality: Adequate MEASUREMENTS (Male / Female) Normal Values 2D ECHO LV Diastolic Diameter PLAX 4.7 cm 4.2 - 5.9 / 3.9 - 5.3 cm IVS Diastolic Thickness 1.3 cm 0.6 - 1.0 / 0.6 - 0.9 cm IVS Systolic Thickness 1.7 cm LVPW Diastolic Thickness 1.1 cm 0.6 - 1.0 / 0.6 - 0.9 cm LVPW Systolic Thickness 1.6 cm LVOT Diameter 1.8 cm LV Ejection Fraction 2D Teich 59.8 % LV Ejection Fraction MOD 2C 51.6 % LV Ejection Fraction 2C AL 52.4 % LA Diameter 3.8 cm LA Sys Volume AL 58.4 cm cubed LA Sys Volume Index AL 22.1 cm cubed/m squared Aorta at Sinotubular Diameter 2.7 cm IVC Diameter 1.6 cm M-MODE LA Ao Ratio MM 1.1 AV Cusp Separation MM 2.1 cm DOPPLER AV Peak Velocity 124.0 cm/s LVOT Peak Velocity 96.0 cm/s AV Area Cont Eq vti 2.1 cm squared AV Area Cont Eq pk 1.9 cm squared MV Peak Velocity 86.0 cm/s MV Area PHT 4.2 cm squared Mitral E to A Ratio 1.1 TV Peak E Velocity 66.0 cm/s PV Peak Velocity 82.0 cm/s FINDINGS Left Ventricle Normal left ventricular size and systolic function, EF 60%.mild left ventricular hypertrophy. No regional wall motion abnormalities. Right Ventricle The right ventricle is normal in size and function. Right Atrium The right atrium is normal in size. Left Atrium The left atrium is normal in size. Mitral Valve No gross abnormalities noted Aortic Valve No gross abnormalities noted Tricuspid Valve No gross abnormalities noted Pulmonic Valve No gross abnormalities noted Pericardium Normal pericardium without effusion. Aorta Normal ascending aorta dimension. IVC Normal inferior vena cava. CONCLUSIONS Normal left ventricular size and systolic function, EF 60%. Mild left ventricular hypertrophy. No regional wall motion abnormalities. Normal cardiac chamber sizes. No significant stenotic or regurgitant lesions. No similar previous studies are available for comparison Dr Sandra Mejia MD [facility] (Electronically Signed) Final Date: 27 Mar 2024 15:02 S
--- NOTE | 2024-03-26 21:15 | PC.NURSE ---
Admitted to ICU 1 from ER via stretcher with nurse at bedside. Transferred to bed, tolerated well. V/S stable. No reports of pain or discomfort. Respirations even and unlabored, no reports of shortness of breath. Arrived to room on 4L NC with O2 saturations of 88%, increased O2 to 5L per NC.
[2024-03-26] MEDS: sodium chloride 0.9% 1,000 ML 75 ML IV (21:17)
[2024-03-26] MEDS: doxycycline 100 MG in sodium chloride 0.9% (plus) 100 ML IV (21:19)
[2024-03-26] MEDS: insulin glargine 100 units/1 mL 40 UNIT SUBCUT (21:25)
[2024-03-26 21:30] LABS: Glucose Point of Care 315 mg/dL (70-110)
[2024-03-26] MEDS: OLANZapine 5 mg TABLET PO (21:37)
[2024-03-26] MEDS: piperacillin-tazobactam 3.375 GM in sodium chloride 0.9% (plus) 50 ML IV (21:38)
[2024-03-26] MEDS: vancomycin 1,500 MG/300 ML PIGGYBACK 200 MG IV (22:26)
[2024-03-27] VITALS (23 sets, daily range): BP systolic 106–143; BP diastolic 58–71; PULSE 70–95; RESP 11–26; TEMP 36.4–37.1; O2SAT 89–95
[2024-03-27] MEDS: piperacillin-tazobactam 3.375 GM in sodium chloride 0.9% (plus) 50 ML IV ×3 (04:32→21:01)
[2024-03-27 05:00] LABS: Basophils % 0.2 %; Hematocrit 46.8 % (36-47); Lymphocytes # 0.9 10^3/uL (0.8-4.8); Lymphocytes % 4.2 %; Mean Corpuscular HGB Conc 30.6 g/dL (30-55); Mean Corpuscular Hemoglobin 27.6 pg (27-33); Mean Corpuscular Volume 90.2 fl (85-98); Mean Platelet Volume 10.3 fL (7.4-10.4); Monocytes # 0.3 10^3/uL (0.2-0.9); Monocytes % 1.5 %; Neutrophils # 19.67 10^3/uL (1.8-7.7); Neutrophils % 93.2 %; Nucleated Red Blood Cells % 0 %; Platelet Count 283 10^3/cmm (157-399); Red Blood Count 5.19 10^6/uL (3.85-5.65); Red Cell Distribution Width 14.6 % (12.1-15.1); White Blood Count 21.11 10^3/uL (3.29-11.43)
[2024-03-27 05:28] LABS: Alanine Aminotransferase 13 U/L (0-33); Albumin Level 3.5 g/dL (3.5-5.2); Alkaline Phosphatase 97 U/L (35-105); Anion Gap 19.4 (5-19); Aspartate Amino Transferase 12 U/L (0-32); Blood Urea Nitrogen 19 mg/dL (6-20); C Reactive Protein 104.1 mg/L (0.0-4.9); Calcium 8.9 mg/dL (8.5-10.5); Carbon Dioxide 19 mmol/L (22-29); Chloride 105 mmol/L (98-107); Globulin 3.6 g/dL (1.3-4.6); Glomerular Filtration Rate 85.9 mL/min (90-130); Glucose 273 mg/dL (65-115); Magnesium 2.4 mg/dL (1.7-2.3); Osmolality Calculated 300 mOsm/kg (285-295); Phosphorus 3.9 mg/dL (2.5-4.5); Potassium 4.4 mmol/L (3.5-5.1); Sodium 139 mmol/L (136-145); Total Bilirubin 0.3 mg/dL (0.15-1.2); Total Protein 7.1 g/dL (6.6-8.7)
[2024-03-27 08:12] LABS: Glucose Point of Care 258 mg/dL (70-110)
[2024-03-27] MEDS: insulin lispro 100 unit/1 mL SUBCUT ×3 (08:14→17:45)
[2024-03-27] MEDS: pantoprazole 40 mg SDV IVP ×2 (08:14→17:44)
--- NOTE | 2024-03-27 09:51 | P.PN_ITS ---
Subjective 2 Subjective: No fever today Patient is eating and tolerating diet No headache or blurry vision No active sign meningitis She will be able to go for lumbar puncture because she is not able to lay on her stomach radiology is not able to do bedside lumbar puncture because of her degenerative joint disease Vitals/I&O/Wt Last Vital Signs Temp 97.5 F L 03/27/24 08:00 Pulse 79 03/27/24 09:04 Resp 17 03/27/24 09:04 BP 134/67 03/27/24 08:00 Pulse Ox 95 03/27/24 09:04 O2 Del Method Nasal Cannula 03/27/24 09:04 O2 Flow Rate 2 03/27/24 09:04 03/26/24 03/27/24 03/27/24 22:59 06:59 14:59 Intake Total 1703.75 / 1703.75 1000 / 2703.75 Output Total 1775 / 1775 1950 / 3725 Balance -71.25 / -71.25 -950 / -1021.25 Weight last 48 hrs Weight 130.499 kg Weight 132.494 kg Physical Exam 2 Narrative: Pleasant cooperative Nonfocal neuroexam No sign of meningitis No active skin rash Patient eating her breakfast Pleasant cooperative Currently on room air No active sign of confusion NIH 0 No active shortness of breath No dysphagia odynophagia Data 03/27/24 04:20 03/27/24 04:20 Micro: Microbiology 03/26/24 10:42 Blood Culture - Preliminary Blood SPECIMEN COLLECTED 03/26/24 10:15 Blood Culture - Preliminary Blood SPECIMEN COLLECTED A&P Assessment and plan (1) Schizoaffective disorder, depressive type: (2) Headache: (3) Mild intellectual disabilities: (4) Acute respiratory failure with hypoxemia: (5) Fever: Plan Fever We are not sure about source of infection She is on antibiotics Afebrile today CRP is high Leukocytosis 29 We not able to do lumbar puncture today No sign of confusion or headache He is hemodynamically stable She can have consistent carb diet along insulin and sliding scale Schizoaffective disorder no acute worsening Troponin trending down EKG without ischemic changes I will watch her for next 24 hours Full code DVT prophylaxis could be initiated today as there is no plan for lumbar puncture Attestations 2 Medical Necessity Statement*: Continue medical management Diagnoses Schizoaffective disorder, depressive type F25.1 Headache R51.9 Mild intellectual disabilities F70 Acute respiratory failure with hypoxemia J96.01 Fever R50.9
--- NOTE | 2024-03-27 10:30 | USR_ITS ---
PROCEDURE INFORMATION: Exam: US Pelvis, Transvaginal Exam date and time: 03/27/2024 10:44 AM Age: 59 years old Clinical indication: Other: Vaginal bleeding TECHNIQUE: Imaging protocol: Real-time transvaginal pelvic ultrasound with image documentation. Transvaginal imaging was used for better evaluation of the endometrium, adnexa, and/or cervix. COMPARISON: CT abdomen pelvis w con* [id number] 03/26/2024 5:06 PM FINDINGS: Uterus: The uterus measures 7.8 x 3.4 x 4 cm. Endometrial stripe measures 11 mm. Two uterine fibroids are noted in the uterine body measuring up to 1.7 cm. Right ovary/adnexa: The right ovary is not identified. Left ovary/adnexa: Normal. No mass. Normal ovarian blood flow. Intraperitoneal space: No free fluid. US/US transvaginal [id number] IMPRESSION: 1. Endometrial thickening 2. Uterine fibroids
[2024-03-27 10:46] LABS: Procalcitonin 1.14 ng/mL (0-0.5)
[2024-03-27 11:18] LABS: Glucose Point of Care 234 mg/dL (70-110)
[2024-03-27] MEDS: fluconazole 100 mg Tablet 200 MG PO (11:22)
[2024-03-27] MEDS: vancomycin 1,500 MG/300 ML PIGGYBACK 200 MG IV (16:28)
[2024-03-27 17:40] LABS: Glucose Point of Care 184 mg/dL (70-110)
[2024-03-27] MEDS: sodium chloride 0.9% 1,000 ML 75 ML IV (19:05)
[2024-03-27] MEDS: OLANZapine 5 mg TABLET PO (21:01)
[2024-03-27] MEDS: enoxaparin 40 mg/0.4 mL Syringe SUBCUT (21:01)
[2024-03-27] MEDS: insulin glargine 100 units/1 mL 40 UNIT SUBCUT (21:01)
[2024-03-28] VITALS (14 sets, daily range): BP systolic 126–143; BP diastolic 60–78; PULSE 71–86; RESP 13–23; TEMP 36.4–36.9; O2SAT 91–95
--- NOTE | 2024-03-28 04:31 | PC.NURSE ---
[facility] called to get an update on patient status. Updated on patients condition and that [facility].
[2024-03-28] MEDS: piperacillin-tazobactam 3.375 GM in sodium chloride 0.9% (plus) 50 ML IV (04:43)
[2024-03-28 05:16] LABS: Basophils # 0.1 10^3/uL (0.0-0.1); Basophils % 0.4 %; Eosinophils # 0.1 10^3/uL (0.0-0.8); Eosinophils % 0.4 %; Hematocrit 44.4 % (36-47); Lymphocytes # 2.9 10^3/uL (0.8-4.8); Lymphocytes % 18.1 %; Mean Corpuscular HGB Conc 30.4 g/dL (30-55); Mean Corpuscular Hemoglobin 27.8 pg (27-33); Mean Corpuscular Volume 91.5 fl (85-98); Mean Platelet Volume 10.1 fL (7.4-10.4); Monocytes # 1.4 10^3/uL (0.2-0.9); Monocytes % 8.8 %; Neutrophils % 71.8 %; Nucleated Red Blood Cells % 0 %; Platelet Count 264 10^3/cmm (157-399); Red Blood Count 4.85 10^6/uL (3.85-5.65); Red Cell Distribution Width 14.8 % (12.1-15.1); White Blood Count 15.87 10^3/uL (3.29-11.43)
[2024-03-28 05:41] LABS: Anion Gap 13.1 (5-19); Blood Urea Nitrogen 22 mg/dL (6-20); C Reactive Protein 50.5 mg/L (0.0-4.9); Calcium 8.9 mg/dL (8.5-10.5); Carbon Dioxide 25 mmol/L (22-29); Chloride 106 mmol/L (98-107); Glomerular Filtration Rate 73.7 mL/min (90-130); Glucose 179 mg/dL (65-115); Osmolality Calculated 298 mOsm/kg (285-295); Potassium 4.1 mmol/L (3.5-5.1); Sodium 140 mmol/L (136-145)
[2024-03-28 07:20] LABS: Glucose Point of Care 168 mg/dL (70-110)
[2024-03-28] MEDS: insulin lispro 100 unit/1 mL SUBCUT ×2 (08:04→12:06)
[2024-03-28] MEDS: pantoprazole 40 mg SDV IVP (08:04)
[2024-03-28] MEDS: vancomycin 1,500 MG/300 ML PIGGYBACK 200 MG IV (10:01)
--- NOTE | 2024-03-28 10:50 | PM.DCS ---
Discharge Providers Date of Admission: 03/26/24 20:02 Date of Discharge: March 28, 2024 Attending Provider at Admission: Padma aMldonado MD Attending Provider at Discharge: Jeffery Garcia MD Primary Care Provider: Roberth Mendez MD Diagnoses at Discharge Discharge Diagnosis (1) Schizoaffective disorder, depressive type: Status: Acute (2) Headache: Status: Acute (3) Mild intellectual disabilities: Status: Acute (4) Acute respiratory failure with hypoxemia: Status: Acute (5) Fever: Status: Acute Reason for Visit Reason for Visit: vaginal bleeding Hospital Course Hospital Course 59 female who presented from [facility] for confusion and word finding difficulty and fever 103 which was noted at the senior care however in the hospital she only had 1 episode and after that she never spiked any fever she remained hemodynamic stable, there were no sign of confusion from day 1, there was low suspicion for stroke, even meningitis was considered low in differentials because she never showed any typical signs, she was put on antibiotics from day 1, her leukocytosis improved significantly, she was complaining of excessive vaginal bleed transvaginal ultrasound showed endometrial thickening with fibroids, cultures remain negative, viral panel negative, extensive workup was unremarkable. Her inflammatory markers are trending down. I do have suspicion regarding her intertrigo around groin area and vaginitis. I will continue Augmentin levofloxacin for next few days. She has received fluconazole in the hospital. Patient is tolerating her diet, sugar is being well-controlled on insulin sliding scale. Very pleasant cooperative I requested CSF studies however she is not able to lay on her stomach for fluoroscopic guided CSF panel my suspicion is low for meningitis at this point I will be able to discharge her back to the senior care with stable hemodynamics, Caregiver is in agreement and happy with the progress. White count at the discharge is 15.8 concern for endocarditis is low, echo did not show any vegetations. Physical Exam Narrative: Pleasant and cooperative Nonfocal neuroexam GCS 15 S1, S2 Currently on room air Discharge Data Studies Completed and Pending Completed Studies During Hospitalization Category Date Time Status CT abdomen pelvis w con* [id number] Stat Cat Scan 03/26/24 14:[address] angio chest PE protcl [id number] Stat Cat Scan 03/26/24 13:[address] head wo con* [id number] Stat Cat Scan 03/26/24 10:08 Completed XR chest 1V [id number] Stat Exams 03/26/24 10:04 Completed CV. echo complete* [id number] Routine Ultrasound 03/26/24 20:30 Completed US gall bladder [id number] Stat Ultrasound 03/26/24 19:21 Completed US transvaginal [id number] Routine Ultrasound 03/27/24 10:30 Completed Pending at discharge Category Date Time Status ALVA [C ALVA Profile] Routine Lab 03/27/24 11:28 Received Blood Culture Stat Lab 03/26/24 10:42 Results CSF Analysis + Cell Count Routine Lab 03/26/24 20:30 Uncollected CSF Culture & Gram Stain Routine Lab 03/26/24 20:30 Uncollected CSF Culture Routine Lab 03/26/24 20:30 Uncollected Glucose CSF Routine Lab 03/26/24 20:30 Uncollected Lymes Disease Antibodies CSF Routine Lab 03/26/24 20:30 Ordered Total Protein CSF Routine Lab 03/26/24 20:30 Uncollected Radiology Impressions Chest X-Ray 03/26/24 10:04 IMPRESSION: No acute chest abnormality. Head CT 03/26/24 10:08 IMPRESSION: 1. No evidence of intracranial hemorrhage or mass effect. 2. No acute intracranial findings. Chest CTA 03/26/24 13:00 IMPRESSION: 1. No evidence of pulmonary embolus 2. Slight bibasilar atelectasis with shallow inspiration. 3. Partially visualized rectus abdominous diastases with contained ventral abdominal wall hernia. No evidence of bowel obstruction. Abdomen/Pelvis CT 03/26/24 14:57 IMPRESSION: 1. Large hernias involving the anterior abdominal wall 2. A benign renal cyst or cysts have been detected. No further follow-up imaging is required. COMMENTS: Consistent with the [employer]'s Incidental Findings Committee white paper (J Am Hugo Radiol 2018): Any incidental renal lesion less than 1 cm or classified as too small to characterize, or any incidental cystic renal lesion characterized as simple-appearing, is likely benign. No follow-up imaging is recommended for these lesions per consensus recommendations based on imaging criteria. Gallbladder Ultrasound 03/26/24 19:21 IMPRESSION: Fatty liver. Transvaginal US 03/27/24 10:30 IMPRESSION: 1. Endometrial thickening 2. Uterine fibroids Laboratory Results WBC 15.87 10^3/uL (3.29-11.43) H 03/28/24 04:55 RBC 4.85 10^6/uL (3.85-5.65) 03/28/24 04:55 Hgb 13.50 g/dL (11.27-16.99) 03/28/24 04:55 Hct 44.4 % (36-47) 03/28/24 04:55 MCV 91.5 fl (85-98) 03/28/24 04:55 MCH 27.8 pg (27-33) 03/28/24 04:55 MCHC 30.4 g/dL (30-55) 03/28/24 04:55 RDW 14.8 % (12.1-15.1) 03/28/24 04:55 Plt Count 264 10^3/cmm (157-399) 03/28/24 04:55 MPV 10.1 fL (7.4-10.4) 03/28/24 04:55 Neut % (Auto) 71.8 % 03/28/24 04:55 Lymph % (Auto) 18.1 % 03/28/24 04:55 [place] % (Auto) 8.8 % 03/28/24 04:55 Eos % (Auto) 0.4 % 03/28/24 04:55 Baso % (Auto) 0.4 % 03/28/24 04:55 Neut # (Auto) 11.40 10^3/uL (1.8-7.7) H 03/28/24 04:55 Lymph # (Auto) 2.9 10^3/uL (0.8-4.8) 03/28/24 04:55 [place] # (Auto) 1.4 10^3/uL (0.2-0.9) H 03/28/24 04:55 Eos # (Auto) 0.1 10^3/uL (0.0-0.8) 03/28/24 04:55 Baso # (Auto) 0.1 10^3/uL (0.0-0.1) 03/28/24 04:55 Nucleated RBC % (auto) 0 % 03/28/24 04:55 Nucleated RBCs # 0.0 /100WBC 03/28/24 04:55 D-Dimer 0.40 ug/mLFEU (0-0.59) 03/27/24 04:20 Specimen Type Arterial 03/26/24 10:06 Sample Site Brachial, left 03/26/24 10:06 ABG pH 7.42 (7.35-7.45) 03/26/24 10:06 ABG pCO2 40.4 mmHg (35-45) 03/26/24 10:06 ABG pO2 58.4 mmHg (80.0-100.0) L 03/26/24 10:06 ABG PO2/FiO2 Ratio 0 03/26/24 10:06 ABG HCO3 26.4 mmol/L (22-26) H 03/26/24 10:06 ABG O2 Saturation 92.5 03/26/24 10:06 ABG Base Excess 1.8 mmol/L (-2.0-2.0) 03/26/24 10:06 Wenceslao Test Pos 03/26/24 10:06 A-a O2 Gradient 15.5 mmHg (5-10) H 03/26/24 10:06 Hematocrit 46.4 % (37-47) 03/26/24 10:06 Hgb O2 Saturation 91.3 % (95-100) L 03/26/24 10:06 Carboxyhemoglobin 1.6 %THgb (0.4-20.1) 03/26/24 10:06 Methemoglobin < 0.0 % (0.4-1.5) L 03/26/24 10:06 Total Hemoglobin 15.1 g/dL (12-16) 03/26/24 10:06 Sodium 138.0 mmol/L (131-143) 03/26/24 10:06 Potassium 4.1 mmol/L (3.5-5.0) 03/26/24 10:06 Glucose 350.0 mg/dL (70-115) H 03/26/24 10:06 Ionized Calcium 1.2 mmol/L (1.1-1.4) 03/26/24 10:06 O2 Delivery Device Nc 03/26/24 10:06 O2 Liters/Min 3.0 % 03/26/24 10:06 FiO2 32.0 % 03/26/24 10:06 Microfilm Equipment Inspector ID Cak 03/26/24 10:06 Sodium 140 mmol/L (136-145) 03/28/24 04:55 Potassium 4.1 mmol/L (3.5-5.1) 03/28/24 04:55 Chloride 106 mmol/L (98-107) 03/28/24 04:55 Carbon Dioxide 25 mmol/L (22-29) 03/28/24 04:55 Anion Gap 13.1 (5-19) 03/28/24 04:55 BUN 22 mg/dL (6-20) H 03/28/24 04:55 Creatinine 0.8 mg/dL (0.5-0.9) 03/28/24 04:55 GFR Calculation 73.7 mL/min (90-130) L 03/28/24 04:55 Glucose 179 mg/dL (65-115) H 03/28/24 04:55 POC Glucose 168 mg/dL (70-110) H 03/28/24 07:16 Calculated Osmolality 298 mOsm/kg (285-295) H 03/28/24 04:55 Lactic Acid 2.1 mmol/L (0.5-2.2) 03/26/24 10:15 Lactic Acid (Sepsis) 1.2 mmol/L (0.5-2.2) 03/26/24 12:49 Calcium 8.9 mg/dL (8.5-10.5) 03/28/24 04:55 Phosphorus 3.9 mg/dL (2.5-4.5) 03/27/24 04:20 Magnesium 2.4 mg/dL (1.7-2.3) H 03/27/24 04:20 Total Bilirubin 0.3 mg/dL (0.15-1.2) 03/27/24 04:20 AST 12 U/L (0-32) 03/27/24 04:20 ALT 13 U/L (0-33) 03/27/24 04:20 Alkaline Phosphatase 97 U/L (35-105) 03/27/24 04:20 Troponin T Baseline 18 ng/L (0-10) H 03/26/24 10:15 Troponin T 120 Minute 18.82 ng/L (0-10) H 03/26/24 12:30 Delta Troponin T 0.82 ABS# (0-10) 03/26/24 12:30 Troponin T Hi Sens 6Hr 20.95 ng/L (0-10) H 03/26/24 16:25 Troponin T Hi Sens 6Hr Delta 2.95 ng/L (0-12) 03/26/24 16:25 C-Reactive Protein 50.5 mg/L (0.0-4.9) H 03/28/24 04:55 NT-Pro-B Natriuret Pep < 36 pg/mL (0-125) 03/26/24 10:15 Total Protein 7.1 g/dL (6.6-8.7) 03/27/24 04:20 Albumin 3.5 g/dL (3.5-5.2) 03/27/24 04:20 Globulin 3.6 g/dL (1.3-4.6) 03/27/24 04:20 Procalcitonin 1.14 ng/mL (0-0.5) H 03/27/24 04:20 Urine Color Yellow (Yellow) 03/26/24 10:38 Urine Appearance Clear (CLEAR) 03/26/24 10:38 Urine pH 5 (5-7) 03/26/24 10:38 Ur Specific [place] 1.010 (1.005-1.030) 03/26/24 10:38 Urine Protein Neg (Negative) 03/26/24 10:38 Urine Glucose (UA) 4+ (Normal) H 03/26/24 10:38 Urine Ketones 1+ (Negative) H 03/26/24 10:38 Urine Blood Neg (Negative) 03/26/24 10:38 Urine Nitrate Negative (Negative) 03/26/24 10:38 Urine Bilirubin Neg (Negative) 03/26/24 10:38 Urine Urobilinogen Norm mg/dL (Negative) 03/26/24 10:38 Ur Leukocyte Esterase Negative (Negative) 03/26/24 10:38 Urine RBC None /hpf (0-2) 03/26/24 10:38 Urine WBC None /hpf (0-5) 03/26/24 10:38 Ur Squamous Epith Cells 0-4 /hpf (0-5) H 03/26/24 10:38 Amorphous Sediment Not Reportable 03/26/24 10:38 Urine Bacteria None /hpf (NONE) 03/26/24 10:38 Urine Mucus None /hpf 03/26/24 10:38 Serum Ketones Negative (Negative) 03/26/24 10:15 Adenovirus (PCR) Not detected (NOT DETECT) 03/26/24 10:29 C. pneumoniae DNA (PCR) Not detected (NOT DETECT) 03/26/24 10:29 Coronavirus 229E (PCR) Not detected (NOT DETECT) 03/26/24 10:29 Human Metapneumovir PCR Not detected (NOT DETECT) 03/26/24 10:29 Influenza A (H1) PCR Not detected (NOT DETECT) 03/26/24 10:29 Influ A (H1/09) PCR Not detected (NOT DETECT) 03/26/24 10: Influenza A (H3) PCR Not detected (NOT DETECT) 03/26/24 10:29 Influenza Type A (PCR) Not detected (NOT DETECT) 03/26/24 10:29 Influenza Type B (PCR) Not detected (NOT DETECT) 03/26/24 10:29 M. pneumoniae (PCR) Not detected (NOT DETECT) 03/26/24 10: Parainfluenza 1 (PCR) Not detected (NOT DETECT) 03/26/24 10: Parainfluenza 2 (PCR) Not detected (NOT DETECT) 03/26/24 10: Parainfluenza 3 (PCR) Not detected (NOT DETECT) 03/26/24 10:29 Parainfluenza 4 (PCR) Not detected (NOT DETECT) 03/26/24 10:29 RSV Type A (PCR) Not detected (NOT DETECT) 03/26/24 10:29 RSV Type B (PCR) Not detected (NOT DETECT) 03/26/24 10: Entero/Rhino (PCR) Not detected (NOT DETECT) 03/26/24 10:29 SARS-CoV-2 (PCR) Not detected (NOT DETECT) 03/26/24 10:29 Vitals Last Vital Signs Temp 97.5 F L 03/28/24 08:00 Pulse 78 03/28/24 10:00 Resp 17 03/28/24 10:00 BP 139/68 03/28/24 10:00 Pulse Ox 92 03/28/24 10:00 O2 Del Method Room Air 03/28/24 08:00 O2 Flow Rate 2 03/27/24 09:04 Discharge Plan Discharge Patient Disposition: Xfer SNF Condition: Stable Prescriptions: New amoxicillin-pot clavulanate 875-125 mg tablet 1 tab PO BID Qty: 10 0RF levofloxacin 750 mg tablet 750 mg PO DAILY 7 Days Qty: 7 0RF Continued (DME) Diabetic Shoes See Rx Instructions .ROUTE .MEDSUPPLY Qty: 1 0RF Rx Instructions: As directed (DME) Night Splint See Rx Instructions .Route .MEDSUPPLY Qty: 1 0RF Rx Instructions: As directed insulin glargine [Lantus U-100 Insulin] 100 unit/mL solution 40 unit SUBCUT BEDTIME olanzapine 5 mg tablet 5 mg PO BEDTIME acetaminophen 650 mg tablet extended release 650 mg PO .Q6HRS PRN (Reason: Pain) Farxiga 10 mg tablet 10 mg PO DAILY Qty: 90 3RF [place] 5-325 mg Tablet 0.5 - 1 tab PO Q6H PRN (Reason: Pain) olanzapine 2.5 mg tablet 2.5 mg PO QAM Altagracia-Tussin 100 mg/5 mL Liquid 200 mg PO Q4H PRN (Reason: Cough) loratadine 10 mg Tablet 10 mg PO DAILY Novolog FlexPen U-100 Insulin 100 unit/mL (3 mL) insulin pen 5 unit SUBCUT TID Discharge Orders: Discharge Order (Routine); Ordered 03/28/24 Ordered By: Jeffrey Garcia Referrals: [facility] [Outside] Roberth Mendez MD [Primary Care Provider] - Discharge Diet: Diabetic Patient Instructions: Opioid Safety Discharge Attestations Time Spent in Discharge Care*: greater than 30 min Quality Metrics Clinical Quality Measures [ No reported AMI, CVA or VTE this stay] Coding Level of Care Code Acute Code for Chg Fwd Diagnoses Schizoaffective disorder, depressive type F25.1 Headache R51.9 Mild intellectual disabilities F70 Acute respiratory failure with hypoxemia J96.01 Fever R50.9
--- NOTE | 2024-03-28 10:57 | PC.NURSE ---
Removed cartagena catheter without issues.
[2024-03-28 11:20] LABS: Glucose Point of Care 183 mg/dL (70-110)
[2024-03-28 14:21] LABS: Anti-Double Strand DNA AB <1 IU/mL; Jo-1 Antibody <1.0 NEG AI (<1.0 NEG); SS-B/LA IGG <1.0 NEG AI (<1.0 NEG); Scleroderma Ab(Scl-70) Ab <1.0 NEG AI (<1.0 NEG); Ss-A/Ro Igg <1.0 NEG AI (<1.0 NEG)
[2024-03-28 18:59] LABS: Glucose Point of Care 223 mg/dL (70-110)
== END 2024-03-28 12:28 | disposition skilled nursing facility (03) | DRG 816 ==
LOC: ER 19:31 → ICU 20:02
PROVIDERS: Admitting Provider Internal Medicine; Emergency Provider Emergency Medicine; PCP Internal Medicine; Visit Provider Internal Medicine
DX: D72.829 Elevated white blood cell count, unspecified (principal); R50.9 Fever, unspecified; R51.9 Headache, unspecified; F25.1 Schizoaffective disorder, depressive type; F70 Mild intellectual disabilities; L30.4 Erythema intertrigo; N76.0 Acute vaginitis; D25.9 Leiomyoma of uterus, unspecified; E11.9 Type 2 diabetes mellitus without complications; Z79.4 Long term (current) use of insulin
CPT/HCPCS: 36415; 36416; 36600; 70450; 71045; 71275; 74177; 76705; 76830; 80048; 80051; 80053; 81001; 82009; 82330; 82805; 82962; 83605; 83735; 83880; 84100; 84145; 84484; 85025; 85378; 86140; 86225; 86235; 87040; 87486; 87581; 87633; 93005; 93306; 94640; 96365; 96372; 96375; 99285; C9113; J1650; J1815; J1956; J2543; J2919; J3370; J3490; J7030; J7613; Q9967

== ENCOUNTER → 2024-04-22 15:17 | Outpatient (BNVA) | payer MEDICARE, MEDICAID, SELFPAY | PROVIDERS: PCP Internal Medicine; Referring Provider Internal Medicine; Visit Provider Obstetrics & Gynecology | DX: Z01.419 Encounter for gynecological examination (general) (routine) without abnormal findings (principal) | CPT/HCPCS: 87624 ==

== ENCOUNTER 2024-05-22 06:25 | Day surgery (SDC) | payer MEDICARE, MEDICAID, SELFPAY ==
[2024-05-22] VITALS (11 sets, daily range): BP systolic 118–164; BP diastolic 65–100; PULSE 83–101; RESP 17–20; TEMP 36.3–36.6; O2SAT 90–94; BMI 40.1
--- NOTE | 2024-05-22 02:08 | W.PM.OPSFHP ---
Same Day Surgery H&P Indication for Procedure/HPI DATE OF PROCEDURE: May 22, 2024 CHIEF COMPLAINT/INDICATIONFOR SURGICAL PROCEDURE: postmenopausal bleeding PREOP DIAGNOSIS: postmenopausal bleeding PLANNED PROCEDURE: Operation Date: 05/22/24 08:15 Proposed Procedures p Hysteroscopy Hysteroscopy w/ Endometrial Sampling 77571, N93.9(Not Applicable) - Florin Del Castillo MD s Poylpectomy(Not Applicable) - Florin Del Catsillo MD 59 y.o. LNMP approximately 15 years ago began to have vaginal bleeding in February Medications/Allergies* Home Medications Medication Instructions Recorded Confirmed Type acetaminophen 650 mg 650 mg PO .Q6HRS PRN Pain 12/05/21 05/21/24 History tablet,extended release insulin glargine 100 unit/mL 40 unit SUBCUT BEDTIME 12/05/21 05/21/24 History subcutaneous solution (Lantus U-100 Insulin) olanzapine 5 mg tablet 5 mg PO BEDTIME 12/05/21 05/21/24 History guaifenesin 100 mg/5 mL oral 200 mg PO Q4H PRN Cough 03/26/24 05/21/24 History liquid (Altagracia-Tussin) hydrocodone 5 mg-acetaminophen 325 0.5 - 1 tab PO Q6H PRN Pain 03/26/24 05/21/24 History mg tablet insulin aspart U-100 100 unit/mL 5 unit SUBCUT TID 03/26/24 05/21/24 History (3 mL) subcutaneous pen (Novolog FlexPen U-100 Insulin aspart) loratadine 10 mg tablet 10 mg PO DAILY 03/26/24 05/21/24 History olanzapine 2.5 mg tablet 2.5 mg PO QAM 03/26/24 05/21/24 History docusate sodium 100 mg capsule 100 mg PO DAILY 04/22/24 05/21/24 History (Colace) Allergies/Adverse Reactions Allergy/AdvReac Type Severity Reaction Status Date / Time No Known Allergies Allergy Verified 04/22/24 14:51 Pertinent History/Comorbid Conditions* Medical History (Updated 04/23/24 @ 21:31 by Florin Del Castillo MD) Positive Walters's Sign Headache Fever Cognitive developmental delay Acute upper respiratory infection Acute respiratory failure with hypoxemia Diabetic foot Peripheral neuropathy Necrotizing fasciitis Abdominal wall status post colostomy, developed ventral hernia Mild intellectual disabilities Schizoaffective disorder, depressive type Diabetes mellitus No changes till I can see her in person. Pure hypercholesterolemia, unspecified Family History (Updated 04/22/24 @ 14:56 by Dawn Yadav LPN) Diabetes Mother Grandmother CAD (coronary artery disease) Mother Heart disease Mother Breast cancer Grandmother Hypertension Mother Thyroid disease Mother Stroke Grandfather Denies family history of Colon cancer Ovarian cancer Prostate cancer Uterine cancer Pertinent Exam Findings alert, oriented x 3, clear to auscultation bilaterally and regular rate & rhythm Pertinent Data Pelvic sono 03-27-24 uterus 7.8 x 3.4 x 4 cm Two 1.7 cm fibroids Endometrium 1.1 cm Right ov not seen Left ov normal Recommendations Surgery/Procedure today Coding Level of Care Code Acute Code for Chg Fwd Time Spent (min) 30
[2024-05-22] MEDS: sodium chloride 0.9% 1,000 ML 30 ML IV (07:01)
[2024-05-22 07:14] LABS: Glucose Point of Care 247 mg/dL (70-110)
--- NOTE | 2024-05-22 07:57 | ANES.PREANE2 ---
Pre-Anesthetic Assessment Height/Weight: Height 1.78 m Weight 127.006 kg Temp Pulse Resp BP Pulse Ox O2 Del Method 97.8 F 101 H 18 144/75 90 Room Air 05/22/24 06:48 05/22/24 06:48 05/22/24 06:48 05/22/24 07:16 05/22/24 06:48 05/22/24 06:49 Preop Diagnosis: abnormal uterine bleeding Operation Date: 05/22/24 08:15 Proposed Procedures p Hysteroscopy Hysteroscopy w/ Endometrial Sampling 30763, N93.9(Not Applicable) - Florin Del Castillo MD s Poylpectomy(Not Applicable) - Florin Del Castillo MD Familial anesthetic complications: None Was Beta Mazin taken within 24 hours: N/A Was Clonidine taken within 24 hours: N/A Last intake: Intake Last Liquid Date 05/13/24 Last Liquid Time 18:00 Last Solid Date 05/21/24 Last Solid Time 18:00 Social No alcohol and No tobacco Exam alert, oriented x 3, clear to auscultation bilaterally and regular rate & rhythm Airway Dentition: other (patient has distinctly notched upper incisors. giving the appearance of chips. patient and mother deny chips - saying they are like that ) Metabolic Diabetes Mellitus and Morbid Obesity Anesthetic Plan ASA status: 3 Anesthesia: General Risk of > 500 ml blood loss (7ml/kg in children): No Medications/Allergies Home Medications Medication Instructions Recorded Confirmed Last Taken Type Diabetic Shoes #1 ea 06/10/20 04/22/24 Unknown Rx Night Splint #1 ea 08/25/21 04/22/24 Unknown Rx acetaminophen 650 mg 650 mg PO .Q6HRS PRN Pain 12/05/21 05/21/24 05/21/24 History tablet,extended release insulin glargine 100 unit/mL 40 unit SUBCUT BEDTIME 12/05/21 05/21/24 05/21/24 History subcutaneous solution (Lantus U-100 Insulin) olanzapine 5 mg tablet 5 mg PO BEDTIME 12/05/21 05/21/24 05/21/24 History dapagliflozin propanediol 10 mg 10 mg PO DAILY #90 tabs 12/07/21 05/21/24 05/21/24 Rx tablet (Farxiga) guaifenesin 100 mg/5 mL oral 200 mg PO Q4H PRN Cough 03/26/24 05/22/24 05/21/24 History liquid (Altagracia-Tussin) hydrocodone 5 mg-acetaminophen 325 0.5 - 1 tab PO Q6H PRN Pain 03/26/24 05/22/24 05/21/24 History mg tablet insulin aspart U-100 100 unit/mL 5 unit SUBCUT TID 03/26/24 05/21/24 05/21/24 History (3 mL) subcutaneous pen (Novolog FlexPen U-100 Insulin aspart) loratadine 10 mg tablet 10 mg PO DAILY 03/26/24 05/21/24 05/21/24 History olanzapine 2.5 mg tablet 2.5 mg PO QAM 03/26/24 05/21/24 05/21/24 History docusate sodium 100 mg capsule 100 mg PO DAILY 04/22/24 05/21/24 05/21/24 History (Colace) Allergies Allergy/AdvReac Type Severity Reaction Status Date / Time No Known Allergies Allergy Verified 05/22/24 06:57 Current Medications Generic Name Dose Route Start Last Admin Trade Name Freq PRN Reason Stop Dose Admin Sodium Chloride 1,000 mls @ 30 mls/hr 05/22/24 06:45 05/22/24 07:01 Sodium Chloride 0.9% IV 05/23/24 06:44 30 mls/hr .Q24H MITCH Administration PFSH Anesthesia Medical History Positive Walters's Sign Headache Fever Cognitive developmental delay Acute upper respiratory infection Acute respiratory failure with hypoxemia Diabetic foot Peripheral neuropathy Necrotizing fasciitis Abdominal wall status post colostomy, developed ventral hernia Mild intellectual disabilities Schizoaffective disorder, depressive type Diabetes mellitus No changes till I can see her in person. Pure hypercholesterolemia, unspecified Family History (Updated 04/22/24 @ 14:56 by Dawn Yadav LPN) Mother Diabetes CAD (coronary artery disease) Heart disease Hypertension Thyroid disease Grandmother Breast cancer Diabetes Grandfather Stroke Denies family history of Colon cancer Ovarian cancer Prostate cancer Uterine cancer Data Anesthesia Cardiac Studies: Echocardiogram 03/26/24
--- NOTE | 2024-05-22 08:05 | W.PM.OPSUD ---
Surgery/Procedure H&P Update DATE OF PROCEDURE: May 22, 2024 DATE H&P PERFORMED: 05/22/24 H&P UPDATE INFORMATION: I have reviewed H&P completed within last 30 days, I have examined patient prior to procedure and No changes to prior documentation PREOP DIAGNOSIS: abnormal uterine bleeding PLANNED PROCEDURE: Operation Date: 05/22/24 08:15 Proposed Procedures p Hysteroscopy Hysteroscopy w/ Endometrial Sampling 16658, N93.9(Not Applicable) - Florin Del Castillo MD s Poylpectomy(Not Applicable) - Florin Del Castillo MD
--- NOTE | 2024-05-22 09:50 | PM.OP ---
Operative Report Date of procedure: May 22, 2024 Pre-op diagnosis: abnormal uterine bleeding Post-op diagnosis: same Post-op findings: several 1-2 cm endometrial polyps Moderate endometrial tissue Intact endometrial cavity following hysteroscopy Procedure done: Hysteroscopy Endometrial sampling and polypectomy with Myosure Implants: none Specimens removed/disposition: endometrial tissue Surgeon: Florin Del Castillo MD Anesthesia: MAC Estimated blood loss (mL): 5 Complications: none Findings: several 1-2 cm endometrial polyps Moderate endometrial tissue Intact endometrial cavity following hysteroscopy Condition: stable Disposition: PACU Brief History: 59 y.o. G0 LNMP approximately 15 years ago Began to have vaginal bleeding 4 weeks ago Procedure: Informed consent signed. Patient was taken to the operating room. Anesthesia was induced. Patient was placed in dorsolithotomy position, prepped and draped for hysteroscopy. A bivalve speculum was placed in the vagina. The anterior lip of the cervix was grasped with a sharp-toothed tenaculum. The cervix was serially dilated with Hegar dilators. . A hysteroscope was placed into the endometrial cavity. The endometrial cavity was seen have several 1 cm endometrial polyps. There was moderate endometrial tissue. A Myosure was used to remove the polyps and to perform endometrial sampling. The myosure device was then removed. The endometrial cavity was seen to be intact. The hysteroscope was then removed. All tissue was sent to pathology. The sharp-toothed tenaculum was removed. There was no bleeding from the endometrial cavity or cervix. The patient was then placed supine and awakened and taken to the PACU. Postop condition: stable EBL: 5 cc Sponge and instruments counts were normal x 2 Complications: none
[2024-05-22 10:09] LABS: Glucose Point of Care 232 mg/dL (70-110)
--- NOTE | 2024-05-22 10:35 | ANE.PACU2 ---
Inpatient post-anesthesia follow up: Airway intact: Yes Vital signs: Temperature 97.3 F Pulse Rate 83 Respiratory Rate 18 Blood Pressure 155/82 Pulse Oximetry 94 Oxygen Delivery Me thod Room Air Oxygen Flow Rate 2 Fraction of Inspir ed Oxygen Hydration adequate: Yes Nausea and vomiting: No Pain level: 1 Mental status: Baseline
== END 2024-05-22 10:36 | disposition home or self-care (01) ==
PROVIDERS: PCP Internal Medicine; Visit Provider Obstetrics & Gynecology
PROC: 0UJD8ZZ Inspection of Uterus and Cervix, Via Natural or Artificial Opening Endoscopic (ICD-10-PCS; CPT 58555; principal; 2024-05-22 08:05)
PROC: (CPT 58558; 2024-05-22 08:05)
DX: N93.9 Abnormal uterine and vaginal bleeding, unspecified (principal); N84.0 Polyp of corpus uteri; E66.01 Morbid (severe) obesity due to excess calories; Z68.41 Body mass index [BMI] 40.0-44.9, adult; Z79.4 Long term (current) use of insulin; E11.40 Type 2 diabetes mellitus with diabetic neuropathy, unspecified; E78.00 Pure hypercholesterolemia, unspecified
CPT/HCPCS: 58558; 36416; 82962; 88305; J0330; J1100; J2250; J2405; J2704; J3010; J7030

== ENCOUNTER → 2024-10-02 10:45 | Outpatient (BNVA) | payer MEDICARE, MEDICAID, SELFPAY | PROVIDERS: PCP Internal Medicine; Visit Provider Podiatrist Foot & Ankle Surgery | DX: L84 Corns and callosities (principal); B35.1 Tinea unguium; G62.9 Polyneuropathy, unspecified; E11.42 Type 2 diabetes mellitus with diabetic polyneuropathy; Z79.4 Long term (current) use of insulin | CPT/HCPCS: 11055; 11721 ==

== ENCOUNTER → 2024-11-06 10:57 | Outpatient (BNVA) | payer MEDICARE, MEDICAID, SELFPAY | PROVIDERS: PCP Internal Medicine; Visit Provider Podiatrist Foot & Ankle Surgery | DX: L84 Corns and callosities (principal); B35.1 Tinea unguium; G62.9 Polyneuropathy, unspecified; E11.42 Type 2 diabetes mellitus with diabetic polyneuropathy; Z79.4 Long term (current) use of insulin | CPT/HCPCS: 11055; 99213 ==

== ENCOUNTER → 2024-12-03 13:15 | Outpatient (BNVA) | payer MEDICARE, MEDICAID, SELFPAY | PROVIDERS: PCP Internal Medicine; Visit Provider Podiatrist Foot & Ankle Surgery | DX: L97.512 Non-pressure chronic ulcer of other part of right foot with fat layer exposed; B35.1 Tinea unguium; G62.9 Polyneuropathy, unspecified; L84 Corns and callosities; E11.42 Type 2 diabetes mellitus with diabetic polyneuropathy; E11.621 Type 2 diabetes mellitus with foot ulcer; Z79.4 Long term (current) use of insulin | CPT/HCPCS: 11056; 11721; 99213 ==

== ENCOUNTER → 2025-02-26 11:17 | Outpatient (BNVA) | payer MEDICARE, MEDICAID, SELFPAY | PROVIDERS: PCP Internal Medicine; Visit Provider Podiatrist Foot & Ankle Surgery | DX: E11.42 Type 2 diabetes mellitus with diabetic polyneuropathy (principal); B35.1 Tinea unguium; L84 Corns and callosities; G62.9 Polyneuropathy, unspecified; Z79.4 Long term (current) use of insulin | CPT/HCPCS: 11056; 11721 ==

== ENCOUNTER 2025-04-01 13:43 | Outpatient (CLI) | payer MEDICARE, MEDICAID, SELFPAY ==
--- NOTE | 2025-04-01 13:48 | MM_ITS ---
WS: [id number] BILATERAL 3D TOMOSYNTHESIS DIGITAL SCREENING MAMMOGRAPHY WITH CAD CLINICAL INFORMATION: SCREENING HISTORY: Screening mammogram. No current complaints. COMPARISON: 2022 TECHNIQUE: Bilateral CC and MLO views. FINDINGS: The breasts are composed of heterogeneous fibroglandular density tissue, which can limit the detection of small underlying mass lesions. No suspicious mass, asymmetry, calcifications, or architectural distortion. No evidence of malignancy. Incidental punctate calcifications. Cluster calcifications RIGHT breast. MM/MM [facility] tomosynthesis [id number] IMPRESSION: DENSITY: The breasts are heterogeneously dense, which may obscure small masses. BI-RADS: 2 - Benign FOLLOW UP: 1 Year Follow-up Recommend return to annual screening mammography.
== END 2025-04-01 13:44 | disposition home or self-care (01) ==
PROVIDERS: PCP Internal Medicine; Visit Provider Internal Medicine
DX: Z12.31 Encounter for screening mammogram for malignant neoplasm of breast (principal); R92.333 Mammographic heterogeneous density, bilateral breasts; R92.1 Mammographic calcification found on diagnostic imaging of breast
CPT/HCPCS: 77063; 77067

== ENCOUNTER → 2025-04-30 11:11 | Outpatient (BNVA) | payer MEDICARE, MEDICAID, SELFPAY | PROVIDERS: PCP Internal Medicine; Visit Provider Podiatrist Foot & Ankle Surgery | DX: E11.621 Type 2 diabetes mellitus with foot ulcer (principal); L97.512 Non-pressure chronic ulcer of other part of right foot with fat layer exposed; B35.1 Tinea unguium; G62.9 Polyneuropathy, unspecified; L84 Corns and callosities; L03.115 Cellulitis of right lower limb; E11.42 Type 2 diabetes mellitus with diabetic polyneuropathy; Z79.4 Long term (current) use of insulin | CPT/HCPCS: 11042; 99214 ==

== ENCOUNTER → 2025-05-06 11:14 | Outpatient (BNVA) | payer MEDICARE, MEDICAID, SELFPAY | PROVIDERS: PCP Internal Medicine; Visit Provider Podiatrist Foot & Ankle Surgery | DX: E11.621 Type 2 diabetes mellitus with foot ulcer (principal); L97.512 Non-pressure chronic ulcer of other part of right foot with fat layer exposed; B35.1 Tinea unguium; G62.9 Polyneuropathy, unspecified; L84 Corns and callosities; E11.42 Type 2 diabetes mellitus with diabetic polyneuropathy; L03.115 Cellulitis of right lower limb; Z79.4 Long term (current) use of insulin | CPT/HCPCS: 99213 ==

== ENCOUNTER → 2025-05-20 11:32 | Outpatient (BNVA) | payer MEDICARE, MEDICAID, SELFPAY | PROVIDERS: PCP Internal Medicine; Visit Provider Podiatrist Foot & Ankle Surgery | DX: L97.512 Non-pressure chronic ulcer of other part of right foot with fat layer exposed (principal); B35.1 Tinea unguium; G62.9 Polyneuropathy, unspecified; L84 Corns and callosities; E11.42 Type 2 diabetes mellitus with diabetic polyneuropathy; E11.621 Type 2 diabetes mellitus with foot ulcer; Z79.4 Long term (current) use of insulin | CPT/HCPCS: 99213 ==

== ENCOUNTER → 2025-07-09 13:11 | Outpatient (BNVA) | payer MEDICARE, MEDICAID, SELFPAY | PROVIDERS: PCP Internal Medicine; Visit Provider Podiatrist Foot & Ankle Surgery | DX: E11.42 Type 2 diabetes mellitus with diabetic polyneuropathy (principal); B35.1 Tinea unguium; L84 Corns and callosities; G62.9 Polyneuropathy, unspecified; Z79.4 Long term (current) use of insulin | CPT/HCPCS: 11056; 11721 ==

== ENCOUNTER → 2025-09-16 15:22 | Outpatient (BNVA) | payer MEDICARE, MEDICAID, SELFPAY | PROVIDERS: PCP Internal Medicine; Visit Provider Podiatrist Foot & Ankle Surgery | DX: E11.42 Type 2 diabetes mellitus with diabetic polyneuropathy (principal); B35.1 Tinea unguium; L84 Corns and callosities; G62.9 Polyneuropathy, unspecified; E11.8 Type 2 diabetes mellitus with unspecified complications; Z79.4 Long term (current) use of insulin; Z79.85 Long-term (current) use of injectable non-insulin antidiabetic drugs | CPT/HCPCS: 99213 ==

== ENCOUNTER → 2025-10-26 14:36 | Outpatient (BNVA) | payer MEDICARE, MEDICAID, SELFPAY | PROVIDERS: PCP Internal Medicine; Visit Provider Specialist | DX: M17.11 Unilateral primary osteoarthritis, right knee (principal) | CPT/HCPCS: 20610; 73560; 73565; 99205; J1100; J2795; J3301; J9999 ==